=== PATIENT | male | born 1975 | race Caucasian/White ===

== ENCOUNTER 2024-02-10 10:42 | Emergency (ER) | payer MEDICAID, SELFPAY ==
--- NOTE | 2024-02-10 10:56 | XR_ITS ---
PROCEDURE INFORMATION: Exam: XR Right Knee Exam date and time: 02/10/2024 10:56 AM Age: 48 years old Clinical indication: Pain; Right; Prior surgery; Surgery date: 6+ months; Surgery type: Scar tissue removal; Patient HX: States he fell and twisted knee TECHNIQUE: Imaging protocol: Radiologic exam of the right knee. Views: 3 views. COMPARISON: No relevant prior studies available. FINDINGS: Bones/joints: Normal. No fracture or destructive bone lesion. Soft tissues: Normal. IMPRESSION: No acute findings.
--- NOTE | 2024-02-10 11:03 | ED_ITS ---
Discharge Plan Disposition Patient Disposition: Home, Self-Care Condition: Good Prescriptions Prescriptions: No Action sertraline 100 mg tablet 100 mg PO DAILY Patient Comments: TAKE 1 TABLET BY MOUTH ONCE DAILY DIRECTED buspirone 10 mg tablet 10 mg PO DAILY Patient Comments: TAKE 1 TABLET BY MOUTH TWICE DAILY DIRECTED FOR ANXIETY prazosin 2 mg capsule 2 mg PO DAILY Patient Comments: Take 1 capsule by mouth every night as directed quetiapine 150 mg tablet 150 mg PO DAILY Referrals Follow up/Referrals: Iglesia Masters DO [Staff Physician] - See instructions Seamus Vazquez [Primary Care Provider] - See instructions Activity Restrictions/Add. Instructions Additional Instructions/Restrictions: Rest the extremity, Elevate the extremity as tolerated while you are resting. Take ibuprofen for pain. I sent in a prescription to your pharmacy. Follow up with Dr. Masters (orthopedics). I put in a referral but you need to call his office and schedule an appointment. Follow up with your regular doctor. GO TO THE ER FOR ANY WORSENING SYMPTOMS Clinical Impressions Clinical Impression: Right knee sprain, Pain in right knee Stand Alone Forms Stand Alone Forms: Work/School Release Instructions Patient Instructions: How to Use Crutches, DI for Knee Sprain, How to Use a Knee Immobilizer Print Language Print Language: Zimbabwean Discharge ED Provider: Lobito Echols [facility] General Stated complaint: AO-02/07 Pain in R knee Time Seen by Provider: 02/10/24 11:03 History of Present Illness Provider Complaint: He states that he fell 2 days ago and twisted his right knee. He has had right knee pain and swelling since then. He denies any other injury or complaints. Related Data Home Medications ?Medication ?Instructions ?Recorded ?Confirmed buspirone 10 mg tablet 10 mg PO DAILY 02/10/24 02/10/24 prazosin 2 mg capsule 2 mg PO DAILY 02/10/24 02/10/24 quetiapine 150 mg tablet 150 mg PO DAILY 02/10/24 02/10/24 sertraline 100 mg tablet 100 mg PO DAILY 02/10/24 02/10/24 Allergies Allergy/AdvReac Type Severity Reaction Status Date / Time No Known Allergies Allergy Verified 02/10/24 11:06 [facility] Disclaimer: The information contained in this section may have been updated after the patient was seen, as this information can be updated by other users. Medical History (Updated 02/10/24 @ 11:51 by Lobito Echols APRN) Depressed Anxiety Surgical History (Updated 02/10/24 @ 11:07 by Radha Young RN) Hx laparoscopic cholecystectomy Social History Smoking Status: Never smoker alcohol intake: never current occupational status: unemployed Travel in the last 8 weeks: None ROS Obtained: Yes All systems reviewed & no additional complaints except as documented Constitutional Constitutional: Denies chills and Denies fever(s) Eyes Eyes: Denies eye discharge ENT Ears, Nose, Mouth, and Throat: Denies dizziness, Denies otalgia and Denies sore throat Cardiovascular Cardiovascular: Denies chest pain Respiratory Respiratory: Denies shortness of breath, Denies chest congestion, Denies cough, Denies stridor and Denies wheezing Gastrointestinal Gastrointestingal: Denies nausea or vomiting Musculoskeletal Musculoskeletal: Reports as per HPI and Reports arthralgias Integumentary/Breasts Skin/Breast: Denies redness, Denies rash and Denies wounds Neurologic Neurologic: Denies dizziness and Denies paresthesias Allergic/Immunologic Allergic/Immunologic: Denies wheezing Physical Exam General General appearance: alert and in no apparent distress Head Head exam: atraumatic, normocephalic and normal inspection Eye Eye exam: Present normal appearance, PERRL and EOMI ENT ENT exam: Present normal exam, normal oropharynx, mucous membranes moist, TM's normal bilaterally and normal external ear exam Neck Neck exam: Present normal inspection, full ROM and trachea midline; Absent meningismus or lymphadenopathy Chest Chest inspection: Present normal inspection and symmetric chest wall rise; Absent tenderness Respiratory Respiratory exam: Present normal lung sounds bilaterally; Absent respiratory distress Cardiovascular Cardiovascular exam: Present regular rate and normal rhythm; Absent JVD Abdominal Exam Abdominal exam: Present soft and normal bowel sounds; Absent distention, tenderness or guarding Extremities Exam Extremities exam: Present normal capillary refill; Absent calf tenderness Expanded Lower Extremity Exam Right: Hip/Pelvis exam: Present normal inspection and full ROM; Absent tenderness Upper leg exam: Present normal inspection and full ROM; Absent tenderness Knee exam: Present full ROM, tenderness, swelling and knee extension intact; Absent abrasion, laceration, ecchymosis, deformity, crepitus, dislocation, erythema, effusion, anterior drawer sign, posterior draw sign, pain with valgus, laxity with valgus, pain with varus or laxity with varus Lower leg exam: Present normal inspection, full ROM and Achilles tendon intact; Absent tenderness or Homans' sign Ankle exam: Present normal inspection and full ROM; Absent tenderness, tenderness over talofibular lig or anterior draw sign Foot/toe exam: Present normal inspection; Absent full ROM or tenderness Neurovascular/Tendon exam: Present normal capillary refill, normal 2-point discrimination and normal fine/light touch; Absent pulse deficit, motor deficit, sensory deficit, tendon deficit, extremity cold to touch or pallor Gait: observed and limited by pain Back Exam Back exam: Present normal inspection; Absent tenderness Neurological Exam Neurological exam: Present alert and oriented X3 Psychiatric Psychiatric exam: Present normal affect and normal mood Skin Skin exam: Present warm, dry, intact and normal color Lymphatic Lymphatic Findings: no adenopathy Medical Decision Making Medical Records Medical records reviewed: No I reviewed the patient's medical records. Screening: Per USPSTF and CDC recommendations, given the prevalence of disease in our region, it is our hospital?s policy to screen for HIV and viral Hepatitis for all patients aged 18 and over and those with ongoing risk factors. [place] Inquiry Pt receiving controlled substance: No Orders (Tests/Meds): ORDERS Category Date Time Status Knee XR right 3 views [XR knee RT 3V] Stat Exams 02/10/24 10:56 Ordered Radiology Data #1: Image(s): Knee Image Reviewed: Yes I reviewed the patient's radiology image and Yes I have reviewed radiologist's interpretation Preliminary Findings: No Fracture Seen Procedures Risk/Benefits of Procedure(s) Were Explained: Yes Orthopedic Splinting/Casting Injury #1: Side: right Lower Extremity Injury Location: knee Lower Extremity Immobilizer: knee immobilizer and applied by nurse/dr talavera Other Orthopedic Equipment: crutches Post Cast/Splinting Neuro Status: intact and no change Post Cast/Splinting Vasc Status: intact and no change
[2024-02-10 11:04] VITALS: BP 109/70; PULSE 79; RESP 20; TEMP 36.8; O2SAT 96; BMI 30.3
[2024-02-10 11:52] VITALS: BP 109/70; PULSE 79; RESP 20; TEMP 36.8
== END 2024-02-10 12:02 | disposition home or self-care (01) ==
PROVIDERS: Emergency Provider Nurse Practitioner Family; PCP Family Medicine
DX: M25.561 Pain in right knee (principal)
CPT/HCPCS: 73562; 99213; G0381

== ENCOUNTER 2024-02-28 15:33 | Outpatient (CLI) | payer MEDICAID, SELFPAY ==
--- NOTE | 2024-02-28 15:38 | MR_ITS ---
FINAL REPORT CLINICAL HISTORY: right knee pain instability FINDINGS: Multiplanar MR imaging of the right knee was performed without contrast. The medial and lateral menisci are intact without evidence of meniscal tear. There is some fluid in the distal anterior cruciate ligament of uncertain etiology. This may represent a chronic partial tear or mucinous degeneration. The posterior cruciate ligament is intact. The medial collateral ligament and lateral ligamentous complex are intact. The patellar and quadriceps tendons are intact. There is no evidence of fracture. An osteochondral lesion is seen of the trochlea. Mild and moderate chondromalacia is noted, worst involving the patellofemoral compartment. A small joint effusion is seen. The musculature is intact. No soft tissue mass or cyst is identified. IMPRESSION: Fluid in the distal anterior cruciate ligament may represent a chronic partial tear or mucinous degeneration. Mild and moderate chondromalacia, worst involving the patellofemoral compartment. Authenticated and ERN
== END 2024-02-28 23:59 | disposition home or self-care (01) ==
LOC: RAD 15:34
PROVIDERS: PCP Family Medicine; Visit Provider Physician Assistant Surgical
DX: M25.561 Pain in right knee (principal)
CPT/HCPCS: 73721

== ENCOUNTER 2024-03-08 14:40 | Outpatient (RCR) | payer MEDICAID, SELFPAY | END 2024-03-08 15:30 | disposition home or self-care (01) | LOC: PT 14:40 | PROVIDERS: Visit Provider Physician Assistant Surgical | DX: M25.561 Pain in right knee (principal); M23.91 Unspecified internal derangement of right knee | CPT/HCPCS: 97760 ==

== ENCOUNTER 2024-04-29 17:19 | Emergency (ER) | payer MEDICAID, SELFPAY ==
[2024-04-29 17:52] VITALS: BP 114/75; PULSE 73; RESP 18; TEMP 36.6; O2SAT 97; BMI 31.6
--- NOTE | 2024-04-29 18:13 | ED_ITS ---
Discharge Plan Disposition Patient Disposition: Home, Self-Care Condition: Good Prescriptions Prescriptions: New ibuprofen 600 mg tablet 600 mg PO Q6HP PRN (Reason: Mild Pain) Qty: 30 0RF No Action lidocaine HCl 10 mg/mL (1 %) solution 10 mg IJ ONCE Qty: 2 0RF triamcinolone acetonide [Kenalog] 40 mg/mL suspension 40 mg IJ ONCE Qty: 1 0RF sertraline 100 mg tablet 100 mg PO DAILY Patient Comments: TAKE 1 TABLET BY MOUTH ONCE DAILY DIRECTED buspirone 10 mg tablet 10 mg PO DAILY Patient Comments: TAKE 1 TABLET BY MOUTH TWICE DAILY DIRECTED FOR ANXIETY prazosin 2 mg capsule 2 mg PO DAILY Patient Comments: Take 1 capsule by mouth every night as directed quetiapine 150 mg tablet 150 mg PO DAILY Referrals Follow up/Referrals: Michele Olivia MD [Staff Physician] - See instructions Seamus Vazquez [Primary Care Provider] - See instructions Activity Restrictions/Add. Instructions Additional Instructions/Restrictions: Drink plenty of fluids. Follow up with your regular doctor. Follow up with the surgeon. I put in a referral to Dr. Olivia. Please call his office and get an appointment to be seen there by him. Inguinal hernias have a danger of getting incarcerated out in the hernia. You should follow up to discuss getting it fixed. His office phone number will be on this paperwork. GO TO THE ER FOR ANY WORSENING SYMPTOMS Clinical Impressions Clinical Impression: Hernia, inguinal, left Instructions Patient Instructions: DI for Groin Hernia, Groin Hernia -- Adult Print Language Print Language: Czech Discharge ED Provider: Lobito Echols [facility] General Stated complaint: groin area swollen Mode of Arrival: Ambulatory Source of Information: Patient Time Seen by Provider: 04/29/24 18:13 Description of Symptoms (Recalled from Triage Doc. by RN): SWOLLEN LEFT GROIN AREA, PAINFUL X3 WEEKS HEENT Symptoms (Recalled from RN notes): No Resp Symptoms (Recalled from RN notes): No Skin Symptoms (Recalled from RN notes): Yes MS Symptoms (Recalled from RN notes): No Functional Status (Recalled from RN notes): WNL History of Present Illness Provider Complaint: He states that for the past 3 weeks he has had intermittent swelling of his left groin area. He states that he is having pain at the site at times also. Related Data Home Medications ?Medication ?Instructions ?Recorded ?Confirmed buspirone 10 mg tablet 10 mg PO DAILY 02/10/24 04/29/24 prazosin 2 mg capsule 2 mg PO DAILY 02/10/24 04/29/24 quetiapine 150 mg tablet 150 mg PO DAILY 02/10/24 04/29/24 sertraline 100 mg tablet 100 mg PO DAILY 02/10/24 04/29/24 Previous Rx's ?Medication ?Instructions ?Recorded ibuprofen 600 mg tablet 600 mg PO Q6HP PRN Mild Pain #30 04/29/24 tabs Allergies Allergy/AdvReac Type Severity Reaction Status Date / Time No Known Allergies Allergy Verified 03/08/24 14:12 Worker's Comp Is this a Worker's Comp case?: No [facility] Disclaimer: The information contained in this section may have been updated after the patient was seen, as this information can be updated by other users. Medical History Depressed Anxiety Surgical History Hx laparoscopic cholecystectomy Social History (Updated 03/12/24 @ 09:21 by BRENDEN Ward) Smoking Status: Never smoker alcohol intake: never current occupational status: unemployed Travel in the last 8 weeks: None Have you lived/traveled outside US in past 30 days?: No Contact w/someone who lives/traveled outside US past 30 days?: No Exposure to someone with infectious disease in past 14 days?: No Do you have a fever (greater than 100.4 F or 38 C)?: No Have you tested positive for COVID-19: No Exposed to someone with COVID-19 in past 14 days?: No Do you have a sore throat?: No Do you have a cough?: No Do you have any weakness?: No Do you have any diarrhea?: No Are you experiencing any unusual bleeding?: No Do you have any muscle aches/pain?: No Do you have any abdominal pain?: No Are you experiencing loss of taste or smell?: No ROS Obtained: Yes All systems reviewed & no additional complaints except as documented Constitutional Constitutional: Denies chills and Denies fever(s) Eyes Eyes: Denies eye discharge ENT Ears, Nose, Mouth, and Throat: Denies dizziness, Denies otalgia and Denies sore throat Cardiovascular Cardiovascular: Denies chest pain Respiratory Respiratory: Denies shortness of breath, Denies chest congestion, Denies cough, Denies stridor and Denies wheezing Gastrointestinal Gastrointestingal: Reports as per HPI; Denies abdominal pain, nausea or vomiting Musculoskeletal Musculoskeletal: Reports system reviewed and no additional complaints, except as documented and Denies arthralgias Integumentary/Breasts Skin/Breast: Denies rash Neurologic Neurologic: Denies dizziness and Denies paresthesias Allergic/Immunologic Allergic/Immunologic: Denies wheezing Physical Exam General General appearance: alert and in no apparent distress Head Head exam: atraumatic, normocephalic and normal inspection Eye Eye exam: Present normal appearance, PERRL and EOMI ENT ENT exam: Present normal exam, normal oropharynx, mucous membranes moist, TM's normal bilaterally and normal external ear exam Neck Neck exam: Present normal inspection, full ROM and trachea midline; Absent meningismus or lymphadenopathy Chest Chest inspection: Present normal inspection and symmetric chest wall rise; Absent tenderness Respiratory Respiratory exam: Present normal lung sounds bilaterally; Absent respiratory di stress Cardiovascular Cardiovascular exam: Present regular rate and normal rhythm; Absent JVD Abdominal Exam Abdominal exam: Present soft and normal bowel sounds; Absent distention, tenderness or guarding Expanded Exam exam: Present inguinal hernia; Absent penile swelling, balanitis, ulcerations or inguinal lymphadenopathy Extremities Exam Extremities exam: Present normal inspection, full ROM and normal capillary refill; Absent calf tenderness Back Exam Back exam: Present normal inspection; Absent tenderness Neurological Exam Neurological exam: Present alert and oriented X3 Psychiatric Psychiatric exam: Present normal affect and normal mood Skin Skin exam: Present warm, dry, intact and normal color Lymphatic Lymphatic Findings: no adenopathy Medical Decision Making Medical Records Medical records reviewed: No I reviewed the patient's medical records. Screening: Per USPSTF and CDC recommendations, given the prevalence of disease in our region, it is our hospital?s policy to screen for HIV and viral Hepatitis for all patients aged 18 and over and those with ongoing risk factors. [place] Inquiry Pt receiving controlled substance: No Vital Signs: 04/29/24 17:52 Temperature 97.9 F Temperature Source Oral Pulse Rate [Left Radial] 73 Respiratory Rate 18 Blood Pressure [Left Arm] 114/75 Blood Pressure Mean [Left Arm] 88 02 Sat by Pulse Oximetry 97
[2024-04-29 18:31] VITALS: BP 114/75; PULSE 73; RESP 18; TEMP 36.6
== END 2024-04-29 18:31 | disposition home or self-care (01) ==
PROVIDERS: Emergency Provider Nurse Practitioner Family; PCP Family Medicine
DX: K40.90 Unilateral inguinal hernia, without obstruction or gangrene, not specified as recurrent (principal)
CPT/HCPCS: 99212; G0381

== ENCOUNTER 2024-05-01 13:24 | Outpatient (CLI) | payer MEDICAID, SELFPAY ==
[2024-05-01 13:31] LABS: Microscopic, Urine URINE MICROSCOPIC (MICROSCOPIC)
[2024-05-01 13:58] LABS: Basophils # 0.1 K/mm3 (0-0.2); Basophils % 0.5 % (0.1-2.0); Eosinophils # 0.2 K/mm3 (0.0-0.4); Eosinophils % 1.6 % (0.1-12.0); Hematocrit 46.5 % (42.0-52.0); Hemoglobin 15.8 g/dL (14.1-18.0); Lymphocytes # 3.2 K/mm3 (0.7-4.5); Lymphocytes % 24.9 % (10-50); Mean Corpuscular Hemoglobin 31.4 pg (27.0-31.2); Mean Corpuscular Volume 92.4 fl (80-94); Mean Platelet Volume 11.3 fl (7.4-10.4); Monocytes # 0.9 K/mm3 (0.1-1.0); Monocytes % 7.2 % (1.7-9.3); Neutrophils # 8.5 K/mm3 (1.8-7.8); Neutrophils % 65.4 % (37.0-80.0); Platelet Count 287 K/mm3 (142-424); Red Blood Count 5.03 M/mm3 (4.60-6.20); Red Cell Distribution Width 13.6 % (11.5-17.5)
[2024-05-01 14:40] LABS: Appearance,Urine CLEAR (Clear); Blood, Urine Negative (Negative); Color,Urine YELLOW (Yellow); Glucose,Urine (UA) Negative (Negative); Ketones,Urine TRACE (Negative); Leukocyte Esterase,Urine Negative (Negative); Nitrate,Urine Negative (Negative); Protein,Urine TRACE (Negative); Specific Gravity, Urine >= 1.030 (1.005-1.030)
[2024-05-01 14:41] LABS: Alanine Aminotransferase 42 U/L (12-78); Albumin Level 4.8 g/dl (3.5-5.0); Alkaline Phosphatase 100 U/L (38-126); Anion Gap 13.3 mEq/L (5-15); Aspartate Amino Transferase 37 U/L (17-59); Bilirubin,Total 0.6 mg/dl (0.2-1.3); Blood Urea Nitrogen 12 mg/dl (9-20); Calcium 9.9 mg/dl (8.4-10.2); Carbon Dioxide 24 mmol/L (22.0-30.0); Chloride 107 mmol/L (98-107); Estimated Glomerular Filt Rate 90 ml/min (>60); GFR (African American) 109 ML/MIN (>60); Globulin 2.4 g/dL (1.3-3.2); Glucose 96 mg/dl (74-100); Potassium 4.3 mmoL/L (3.5-5.1); Sodium 140 mmol/L (136-145); Total Protein,Serum 7.2 g/dl (6.3-8.2)
[2024-05-01 15:08] LABS: Bilirubin,Urine Negative (Negative); WBC,Urine Occasional #/hpf (0-3)
[2024-05-01 15:09] LABS: Bacteria,Urine 1+ /lpf; Calcium Oxalate Crystals,Urine Trace /lpf; Mucus,Urine 4+ /lpf
[2024-05-02 05:12] LABS: HBsAg Screen Negative (Negative); HCV Ab Non Reactive (Non Reactive); Hep A Ab, IGM Negative (Negative); Hep B Core Ab, IgM Negative (Negative)
== END 2024-05-01 23:59 | disposition home or self-care (01) ==
LOC: LAB 13:26
PROVIDERS: PCP Family Medicine; Visit Provider Surgery
DX: K40.90 Unilateral inguinal hernia, without obstruction or gangrene, not specified as recurrent (principal); Z01.818 Encounter for other preprocedural examination
CPT/HCPCS: 36415; 80053; 80074; 81001; 85025

== ENCOUNTER 2024-05-09 11:45 | Outpatient (CLI) | payer MEDICAID, SELFPAY ==
--- NOTE | 2024-05-09 12:11 | ECG_ITS ---
APPROVED REPORT Exam: Resting ECG HR:81 bpm ECG Measurements Heart Rate 81 AXES NM 162 P 56 QRSd 99 QRS -2 QT 353 T 53 QTc 390 Conclusion SINUS RHYTHM NORMAL ECG UNCONFIRMED REPORT Electronically signed by : Jordan Matos MD 05/12/2024 21:01:57
[2024-05-09 12:58] VITALS: BMI 29.9
== END 2024-05-09 23:59 | disposition home or self-care (01) ==
LOC: PREOP 11:46
PROVIDERS: Visit Provider Surgery
DX: Z13.6 Encounter for screening for cardiovascular disorders (principal)
CPT/HCPCS: 93005

== ENCOUNTER 2024-05-14 06:03 | Day surgery (SDC) | payer MEDICAID, SELFPAY ==
[2024-05-14] VITALS (13 sets, daily range): BP systolic 111–159; BP diastolic 73–106; PULSE 69–88; RESP 18–26; TEMP 36.1–36.6; O2SAT 91–98; BMI 29.9
[2024-05-14 06:39] LABS: Basophils # 0.1 K/mm3 (0-0.2); Basophils % 0.6 % (0.1-2.0); Eosinophils # 0.4 K/mm3 (0.0-0.4); Eosinophils % 3.3 % (0.1-12.0); Hematocrit 46.6 % (42.0-52.0); Hemoglobin 15.2 g/dL (14.1-18.0); Lymphocytes # 4.1 K/mm3 (0.7-4.5); Mean Corpuscular HGB Conc 32.6 g/dL (31.8-35.4); Mean Corpuscular Hemoglobin 30.4 pg (27.0-31.2); Mean Corpuscular Volume 93.2 fl (80-94); Mean Platelet Volume 10.7 fl (7.4-10.4); Monocytes # 1.2 K/mm3 (0.1-1.0); Monocytes % 8.8 % (1.7-9.3); Neutrophils # 7.3 K/mm3 (1.8-7.8); Neutrophils % 55.8 % (37.0-80.0); Platelet Count 310 K/mm3 (142-424); Red Cell Distribution Width 13.7 % (11.5-17.5); White Blood Count 13.1 K/mm3 (4.8-10.8)
[2024-05-14] MEDS: LACTATED RINGERS 1000ML 1,000 ML 25 ML IV (06:42)
--- NOTE | 2024-05-14 06:57 | EXP.ANES.CKL ---
[facility] Disclaimer: The information contained in this section may have been updated after the patient was seen, as this information can be updated by other users. Medical History Depressed Anxiety Surgical History History of knee surgery History of back surgery History of colonoscopy Hx laparoscopic cholecystectomy Family History Other Family history of cancer Family history of diabetes mellitus Social History (Updated 05/14/24 @ 06:25 by Yoon Robert RN) Smoking Status: Current every day smoker alcohol intake: never substance use type: denies use current occupational status: disabled Travel in the last 8 weeks: None [facility] Anesthesia Checklist Patient Identification Patient Identification: Arm Band and Family Structural Data Admitted From: Home Planned Operative Procedure/s: Lap gayathri inguinal hernia repair. Umbilical hernia repair. Consent for Planned Operative Procedure(s) Verified: Yes Verified Documents: Surgical Consent and History and Physical NPO Status Verified Time NPO: 00:00 Additional verifications Patient : No Anesthesia Reactions: No Hx Blood Transfusions: No Blood Transfusion Reaction: No Cephalosporin Allergy: No Previous Colonoscopy: Yes Airway Assessment Mallampati Score:: Class III C-Spine Mobility Assessed: Yes TMJ Mobility Assessed: Yes Dentition: Edentulous Neurological Assessment Level of Consciousness: Awake, Alert, Appropriate and Follows Commands Hx Seizures: No Numbness or tingling in extremities: No Anesthesia Plan Anesthesia Risk discussed: Yes ASA Class: II Anesthesia Type: General
[2024-05-14] MEDS: CEFAZOLIN SODIUM 2 GM in 0.9 % SODIUM CHLORIDE 100 ML IV (07:13)
[2024-05-14] MEDS: ROPIVACAINE 0.5% 30ML VIAL 150 MG (07:36)
[2024-05-14] MEDS: LIDOCAINE 1% 20ML MDV 20 ML (07:36)
--- NOTE | 2024-05-14 09:50 | P.OP_ITS ---
Date of procedure: 05/14/24 Pre-op Diagnosis:: Bilateral inguinal hernias, umbilical hernia Post-op Diagnosis:: Same Procedure performed:: Bilateral laparoscopic inguinal hernia repair via totally extraperitoneal approach (TEPP) with placement of large Bard 3D max mesh bilaterally Open umbilical hernia repair with placement of small Bard Ventralex mesh . Surgeon:: Michele Olivia MD FACILITY MAINTENANCE SUPERVISOR:: Lobito Nuno Anesthesia: GETA Estimated blood loss (mL): 15 Clinical Note:: Patient presents for hernia repair. He is a 48-year-old male who was referred by the [facility] for left inguinal hernia and seen in the office initially on 05/01/2024. He was seen in the [facility] on 04/29/2024. He was diagnosed with left inguinal hernia and sent for surgical consultation. At this point he has had symptoms for about 3 weeks. There is no inciting event. He has had no symptoms on the right side. When he was initially seen in the office he was diagnosed with a definite left inguinal hernia which appeared to be moderate and possibly direct. Discussion was held with anesthesia and plan was to proceed with cardiology risk assessment. He was seen by cardiology and deemed an acceptable risk. He would like to pursue repair. He was seen back in the office on 05/09/2024. He was found to have a definite symptomatic left inguinal hernia and findings consistent with small asymptomatic right inguinal hernia. There was also an incidental reducible umbilical hernia. Given the bilaterality along with the umbilical hernia discussion was held for possible attempt at laparoscopic repair with concentration on the left inguinal hernia. Plan was made to proceed with laparoscopic bilateral inguinal hernia repair, possible open, concomitant umbilical hernia repair. . Operative findings:: He had a moderate direct hernia with a small to moderate indirect hernia on the left. There was a small direct hernia and a small indirect hernia on the right. He had a small, approximately 8 to 10 mm umbilical hernia. . Operative note:: Consent was obtained patient was taken the operating room. He was given preoperative intravenous antibiotics. In the operating room he was placed in a supine position. Ayala catheter was placed for bladder decompression. Abdomen and perineum were prepped and draped in the standard surgical fashion. Subumbilical skin incision was made. Dissection was carried down to anterior rectus fascia which was incised. However this appeared to be likely in the midline despite it being somewhat to the left of the umbilicus. Therefore a couple of Vicryl sutures were placed to close this and immediately adjacent to this to the left the anterior rectus fascia was incised. Rectus muscle was then identified and retracted laterally and the retrorectus preperitoneal space was entered. Dissecting balloon trocar was inserted and insufflated dissecting out the preperitoneal space. This was deflated replaced with the structural balloon trocar. CO2 pneumo preperitoneum was achieved. A couple 5 mm trocars were inserted in the midline inferior to the umbilicus. It appeared as though there was some leakage from the balloon and this was then replaced with a different structural balloon trocar. Dissection was carried out of the left iliopectineal region. Landmarks were identified initially identifying Jimbo's ligament and pubic tubercle. Inferior epigastric vessels were identified as were the iliac vessels. There was an obvious direct hernia. Herniated fatty tissues were reduced leaving the hernia sac in situ. The cord structures were identified and dissected free from surrounding structures. There was some evidence of an indirect hernia with patent processes vaginalis and indirect hernia sac which was reduced after dissection and free from the cord structures. There was some scar tissue in the superior lateral inguinal area with the rectus adherent anteriorly. There was an overlying scar on the skin. Is unclear if this was previous surgery or trauma. The fascia was dissected free using laparoscopic Metzenbaum suction to allow for placement of mesh. Preperitoneal space was dissected out. Once dissection was completed under laparoscopic visualization local anesthetic was infiltrated for inguinal nerve block. Next attention was turned to dissection on the right. In a similar fashion landmarks were identified. There was a small direct hernia which was reduced. There is evidence of a small indirect hernia as well which was dissected free from the cord structures as before and return to the normal anatomic position. All landmarks were identified. Once all dissection was carried out on the right local anesthetic was infiltrated for inguinal nerve block. A large sized Bard 3D max mesh dedicated for the right side was inserted into the preperitoneal space and oriented intracorporeally to cover the iliopectineal orifice in its entirety. Both repairs appeared adequate. There appeared to be good hemostasis. CO2 pneumo preperitoneum was evacuated as mesh was observed in position. Trocars were removed. Anterior rectus fascia at the umbilical site was closed with several interrupted 0 Vicryl sutures. At this time attention was turned to umbilical hernia repair. The hernia sac was dissected free from the surrounding subcutaneous tissues. It was incised with Metzenbaum dissection and dissected free from the umbilical subdermis. The extraneous peritoneum of the hernia sac and herniated preperitoneal fatty tissues were incised with electrocautery. The overall size of the defect measured about 8 mm. Consideration was being given for possible primary repair. However due to its size it was felt that this would likely result in potential recurrence. Therefore repair was planned with small Bard Ventralex mesh. Said mesh was placed into the peritoneal cavity to overlap the fascial defect edges. The tails of the mesh were sutured superiorly and inferiorly to the fascia with interrupted 2-0 PDS. Tails were cut flush with the fascia. The fascia was closed over the mesh with several interrupted 3-0 Ethibond sutures. Local anesthetic was infiltrated. Umbilical subdermis was reapproximated to the underlying fascia with a 2-0 Vicryl suture. Subdermal tissues were closed with 2-0 Vicryl. Skin was closed with 4-0 Monocryl running subcuticular fashion. Condition: stable Disposition: PACU Complications:: None immediately apparent
[2024-05-14 10:01] LABS: Microscopic,Cath URINE MICROSCOPIC (MICROSCOPIC)
--- NOTE | 2024-05-14 10:01 | P.PNANES_ITS ---
[facility] Anesthesia Record Part I Anesthesia Record I Intake, IV Amount: 1,600 Hydration: Adequate Estimated blood loss (mL): 15 Urine output (mL): 200 Blood Products used (#): none Blood Pressure: 130/85 SaO2: 92 Pulse Rate: 83 Airway Patency: Patent Respiratory Rate: 26 Temperature: 97.6 F Patient is:: Drowsy and Stable Stable to PACU at:: 09:55
[2024-05-14] MEDS: MEPERIDINE 25MG/ML 1ML SYRINGE 12.5 MG IV ×2 (10:12→10:20)
[2024-05-14] MEDS: MORPHINE 2MG/ML SYRINGE 2 MG IV (10:22)
[2024-05-14 10:23] LABS: Appearance,Urine/Cath CLEAR (Clear); Bilirubin,Cath Negative (Negative); Blood, Urine/Cath Negative (Negative); Color,Urine/Cath YELLOW (Yellow); Glucose,Urine/Cath (UA) Negative (Negative); Ketones,Urine/Cath Negative (Negative); Leukocyte Esterase,Cath Negative (Negative); Nitrate,Cath Negative (Negative); Protein,Urine/Cath Negative (Negative); Specific Gravity, Urine/Cath >= 1.030 (1.005-1.030); Urobilinogen,Cath 0.2 EU/dl (0.2)
[2024-05-14] MEDS: KETOROLAC 30MG/ML VIAL 30 MG IV (10:50)
[2024-05-14] MEDS: ONDANSETRON 4MG/2ML VIAL 4 MG IV (10:54)
[2024-05-14 10:56] LABS: WBC,Urine/Cath Occasional #/hpf (0-3)
--- NOTE | 2024-05-15 13:08 | P.PNANES_ITS ---
[facility] Anesthesia Record Part II Anesthesia Record Part II Discharge Time: 11:05 Destination: Surgical Day Care (OP Surgery) PACU nurse assessment reviewed?: Yes Patient Condition:: Good Anesthesia Complications:: None Swallowing reflex intact?: Yes Airway Patency: Patent Cyanosis?: No Blood Pressure: 146/97 SaO2: 96 Respiratory Rate: 18 Pulse Rate: 78 Temperature: 98 F Mental Status: Alert & Oriented Pain level:: 5 Nausea and/or vomitting:: None Intake, IV Amount: 0 Hydration: Adequate
[2024-05-15 13:09] VITALS: BP 146/97; PULSE 78; RESP 18; TEMP 36.6; O2SAT 96
== END 2024-05-14 11:45 | disposition home or self-care (01) ==
PROVIDERS: PCP Family Medicine; Visit Provider Surgery
PROC: (CPT 49650; principal; 2024-05-14 07:30)
DX: K40.20 Bilateral inguinal hernia, without obstruction or gangrene, not specified as recurrent (principal); K42.9 Umbilical hernia without obstruction or gangrene
CPT/HCPCS: 49593; 49650; 81001; 85025; 96374; J3490; C1781; J0690; J1100; J1885; J2175; J2250; J2270; J2405; J3010; J7120

== ENCOUNTER 2024-06-27 15:54 | Outpatient (CLI) | payer MEDICAID, SELFPAY ==
--- NOTE | 2024-06-27 15:57 | XR_ITS ---
FINAL REPORT CLINICAL HISTORY: fall/pain in left shoulder with movement COMPARISON: None FINDINGS: LEFT SHOULDER Three views of the left shoulder were obtained. There is no acute fracture or dislocation. Visualized joint spaces are normally aligned. Soft tissues are unremarkable. IMPRESSION: No acute bony abnormality. Reviewed, Interpreted and Dictated by Rustam Nguyễn MD Transcribed by Mariola Novoa Authenticated and [facility]
--- NOTE | 2024-06-27 15:57 | XR_ITS ---
FINAL REPORT CLINICAL HISTORY: fall 3 days ago/pain with movement COMPARISON: None FINDINGS: LEFT CLAVICLE Two views of the left clavicle were obtained. There is no acute fracture or dislocation. The joint spaces are well-preserved. There is no acute soft tissue abnormality. IMPRESSION: No acute abnormality identified. Reviewed, Interpreted and Dictated by Rustam Nguyễn MD Transcribed by Mariola Novoa Authenticated and [facility]
== END 2024-06-27 23:59 | disposition home or self-care (01) ==
LOC: RAD 15:55
PROVIDERS: PCP Family Medicine; Visit Provider Nurse Practitioner
DX: M25.512 Pain in left shoulder (principal)
CPT/HCPCS: 73000; 73030

== ENCOUNTER 2024-07-10 16:32 | Emergency (ER) | payer MEDICAID, SELFPAY ==
[2024-07-10 16:41] VITALS: BP 125/77; PULSE 87; RESP 16; TEMP 36.7; O2SAT 99; BMI 31.2
[2024-07-10 16:42] LABS: Coronavirus 19, PCR Not Detected (NotDetected); Influenza A, PCR Not Detected (NotDetected); Influenza B, PCR Not Detected (NotDetected)
--- NOTE | 2024-07-10 16:52 | ED_ITS ---
<Statement entered by Virginia Valdes DO - 07/10/24 19:17> I was consulted by the [place], and we discussed the complexity of the problems being addressed. I approved the treatment and management plan for this patient's care in the emergency department, thus performing a substantive portion of the medical decision making. Virginia Valdes DO Discharge Plan Disposition Patient Disposition: Home, Self-Care Condition: Good Chief Complaint: Upper Respiratory Infection Prescriptions Prescriptions: No Action ibuprofen 600 mg tablet 600 mg PO Q8H PRN (Reason: pain) Qty: 20 0RF sertraline [Zoloft] 100 mg tablet 100 mg PO DAILY Patient Comments: TAKE 1 TABLET BY MOUTH ONCE DAILY DIRECTED buspirone 10 mg tablet 10 mg PO DAILY Patient Comments: TAKE 1 TABLET BY MOUTH TWICE DAILY DIRECTED FOR ANXIETY prazosin 2 mg capsule 2 mg PO DAILY Patient Comments: Take 1 capsule by mouth every night as directed quetiapine 150 mg tablet 150 mg PO DAILY Referrals Follow up/Referrals: Seamus Vazquez [Primary Care Provider] - See instructions Activity Restrictions/Add. Instructions Additional Instructions/Restrictions: Please utilize [id number] cold and flu medications and nasal decongestions, return to the emergency department any worsening signs or symptoms. Please follow-up with your family doctor. I recommend good intake with solids and fluids. Clinical Impressions Clinical Impression: URI (upper respiratory infection) Instructions Patient Instructions: Common Cold Print Language Print Language: Greenlandic Discharge ED Provider: Virginia Valdes General Adult HPI General Chief complaint: Upper Respiratory Infection Stated complaint: Head congestion,cough,runny nose Time Seen by Provider: 07/10/24 16:43 Mode of Arrival: Ambulatory Source of Information: Patient Description of Symptoms (Recalled from ER Triage Doc. by RN): Patient reports cough and congestion for 6 days. States he thinks he has a sinus infection. History of Present Illness HPI narrative: 48-year-old male presents emergency department with cough, congestion, headache, states I think I have a sinus infection , denies any recent sick contacts, denies any chest pain shortness of breath, denies any real sore throat, denies chest pain, denies shortness of breath, nausea vomiting constipation diarrhea no abdominal pain, no urinary type symptomatology, patient is a current everyday smoker, the past medical history consistent with multiple abdominal hernias, denies any other alcohol or drug use, other past medical history consistent with PTSD/anxiety/depression. Initial triage vitals grossly unremarkable. Onset (ago): day(s) Related Data Home Medications ?Medication ?Instructions ?Recorded ?Confirmed buspirone 10 mg tablet 10 mg PO DAILY 02/10/24 06/27/24 prazosin 2 mg capsule 2 mg PO DAILY 02/10/24 06/27/24 quetiapine 150 mg tablet 150 mg PO DAILY 02/10/24 06/27/24 sertraline 100 mg tablet (Zoloft) 100 mg PO DAILY 02/10/24 06/27/24 Previous Rx's ?Medication ?Instructions ?Recorded ibuprofen 600 mg tablet 600 mg PO Q8H PRN pain #20 tabs 06/27/24 Allergies Allergy/AdvReac Type Severity Reaction Status Date / Time titanium Allergy Hives Verified 06/27/24 12:47 [facility] Disclaimer: The information contained in this section may have been updated after the patient was seen, as this information can be updated by other users. Medical History Depressed Anxiety Surgical History History of hernia surgery History of knee surgery History of back surgery History of colonoscopy Hx laparoscopic cholecystectomy Family History Other Family history of cancer Family history of diabetes mellitus Social History Smoking Status: Current every day smoker alcohol intake: never substance use type: denies use current occupational status: disabled Travel in the last 8 weeks: None Have you lived/traveled outside [place] in past 30 days?: No Contact w/someone who lives/traveled outside US past 30 days?: No Exposure to someone with infectious disease in past 14 days?: No Do you have a fever (greater than 100.4 F or 38 C)?: No Have you tested positive for COVID-19: No Exposed to someone with COVID-19 in past 14 days?: No Do you have a sore throat?: No Do you have a cough?: Yes Do you have any weakness?: No Do you have any diarrhea?: No Are you experiencing any unusual bleeding?: No Do you have any muscle aches/pain?: No Do you have any abdominal pain?: No Are you experiencing loss of taste or smell?: No Other Medical History Have you received the Pneumonia Vaccine: No ROS Obtained: Yes All systems reviewed & no additional complaints except as documented Physical Exam General General appearance: alert and in no apparent distress Head Head exam: atraumatic and normocephalic Eye Eye exam: Present PERRL and EOMI ENT ENT exam: Present normal oropharynx, mucous membranes moist and other (There is some mild pain palpation over the frontal and maxillary sinuses) Neck Neck exam: Present normal inspection Chest Chest inspection: Present normal inspection and symmetric chest wall rise Respiratory Respiratory exam: Present normal lung sounds bilaterally; Absent respiratory distress Cardiovascular Cardiovascular exam: Present regular rate and normal rhythm Abdominal Exam Abdominal exam: Present soft; Absent tenderness Extremities Exam Extremities exam: Present normal inspection Neurological Exam Neurological exam: Present alert and oriented X3 Psychiatric Psychiatric exam: Present normal affect Skin Skin exam: Present warm and dry Medical Decision Making Medical Records Medical records reviewed: Yes I reviewed the patient's medical records. Screening: Per USPSTF and CDC recommendations, given the prevalence of disease in our region, it is our hospital?s policy to screen for HIV and viral Hepatitis for all patients aged 18 and over and those with ongoing risk factors. [place] Inquiry Pt receiving controlled substance: No [place] was queried for this patient: No Vital Signs: 07/10/24 16:41 Temperature 98.0 F Temperature Source Oral Pulse Rate [Radial] 87 Respiratory Rate 16 Blood Pressure [Left Arm] 125/77 Blood Pressure Mean [Left Arm] 93 Blood Pressure Source [Left Arm] Automatic Cuff Blood Pressure Position [Left Arm] Sitting 02 Sat by Pulse Oximetry 99 Oxygen Delivery Method Room Air Lab Data Lab Results 07/10/24 16:40: SARS-CoV-2 (PCR) Not detected, Influenza A Untype (PCR) Not detected, Influenza Type B (PCR) Not detected Orders (Tests/Meds): ORDERS Category Date Time Status HIV Combo Stat Lab 07/10/24 16:43 Ordered Rapid PCR Covid and Flu A/B Stat Lab 07/10/24 16:40 Completed Medical Decision Narrative: 48-year-old male presents to the emergency department with cough congestion other URI type symptomatology, differential diagnosis but limited to viral rhinosinusitis, allergic rhinosinusitis, COVID-19, influenza, acute URI, acute bronchitis. Will obtain rapid antigen swabs for COVID-19 and influenza A and B. Influenza A negative COVID-19 negative influenza B is negative. I discussed the results with the patient at the bedside, recommend strict ED return precautions, recommend good p.o. intake, any of the [id number] cold and flu medications, or nasal decongestions can be utilized for symptomatology. Patient will return to emergency with any worsening signs or symptoms he will follow-up PCP as directed. Patient has remained hemodynamically stable without his time in the emergency department, afebrile. Critical Care Critical Care Time Critical Care Time: No
[2024-07-10 17:49] VITALS: BP 128/80; PULSE 84; RESP 16; TEMP 36.6; O2SAT 99
== END 2024-07-10 17:56 | disposition home or self-care (01) ==
PROVIDERS: Physician Assistant; Emergency Provider Emergency Medicine; PCP Family Medicine
DX: J06.9 Acute upper respiratory infection, unspecified (principal); R09.81 Nasal congestion; R05.9 Cough, unspecified; K46.9 Unspecified abdominal hernia without obstruction or gangrene; F43.10 Post-traumatic stress disorder, unspecified; F41.9 Anxiety disorder, unspecified; F32.A Depression, unspecified; F17.210 Nicotine dependence, cigarettes, uncomplicated; Z91.048 Other nonmedicinal substance allergy status; Z98.890 Other specified postprocedural states; Z80.9 Family history of malignant neoplasm, unspecified; Z83.3 Family history of diabetes mellitus; Z90.49 Acquired absence of other specified parts of digestive tract
CPT/HCPCS: 87636; 99283

== ENCOUNTER 2024-08-06 09:35 | Outpatient (CLI) | payer MEDICAID, SELFPAY ==
[2024-08-06 20:40] LABS: Hemoglobin A1C 5.5 % (4.0-6.0)
[2024-08-06 20:41] LABS: Chol/HDL Ratio 6.3 (1-3.5); Cholesterol 183 mg/dl (140-200); HDL Cholesterol 29 mg/dl (40-60); Triglycerides 305 mg/dl (30-150); VLDL Cholesterol 61 mg/dL (0-40)
[2024-08-06 20:53] LABS: Direct LDL Cholesterol 100.72 mg/dL (100-129)
[2024-08-06 20:57] LABS: 25-OH Vitamin D, Total 16.2 ng/mL (30-100)
[2024-08-06 21:30] LABS: Hepatitis C Ab Qual. W/ RFX NEGATIVE (Negative)
[2024-08-06 22:44] LABS: Prostate Specific Ag Screen 0.5 ng/ml (0.0-4.0)
[2024-08-09 10:56] LABS: HIV Combo NEGATIVE (Negative)
== END 2024-08-06 23:59 | disposition home or self-care (01) ==
LOC: LAB.DROPOF 08-07 11:08
PROVIDERS: PCP Family Medicine; Visit Provider Family Medicine
DX: Z00.00 Encounter for general adult medical examination without abnormal findings (principal); Z13.1 Encounter for screening for diabetes mellitus; Z12.5 Encounter for screening for malignant neoplasm of prostate; Z11.59 Encounter for screening for other viral diseases
CPT/HCPCS: 80061; 82306; 83036; 86803; 87389; G0103

== ENCOUNTER 2024-09-06 10:00 | Outpatient (RCR) | payer MEDICAID, SELFPAY ==
--- NOTE | 2024-08-23 08:38 | HMH.OTOPEV ---
OT Inpatient Evaluation Rehab OT Outpatient Eval Start: 08/23/24 08:28 Freq: Status: Active Protocol: Document 08/23/24 08:28 RMSUNITHA (Rec: 08/23/24 08:38 [id number] E-signed By Ambreen Mandujano, OT Outpatient Therapy Subjective History Subjective History Pt is a 48 year old male who reports to therapy for initial evaluation to L shoulder. Pt reports ~3 months ago he was playing basketball with his son when he went up for a lay up he fell directly back down onto left shoulder. Since this injury, pt has had constant pain and decreased AROM at left shoulder. Pt is right hand dominant. Pt has not has a X-ray or MRI completed. Today he presents with decreased AROM and strength in all planes. Therapist will continue to see patient twice a week in order to address all L shoulder deficits. New diagnosis of cancer in past 12 No months? Chief Complaint Pain,Weakness Symptom Type Ache,Throb,Sharp,Dull Symptoms Relieved By Rest/Positioning Symptoms Aggravated By Physical Activity,Twisting, Lifting Prior Functional Limitations None Current Functional Limitations Reaching,Lifting,Housework, Dressing,Sleeping,Recreation Activity Symptom Description Constant but Variable Level of pain today (0-10) 5 Pain scale - at its best (0-10) 5 Pain scale - at its worst (0-10) 10 Shoulder/Elbow Eval Shoulder Objective Measurements Shoulder ROM Left Shoulder Abduction Active Range of 78 Motion (degrees) Shoulder Flexion Active Range of Motion 100 (degrees) Query Text: Shoulder External Rotation Active Range 50 of Motion (degrees) Shoulder Internal Rotation Active Range 32 of Motion (degrees) Shoulder MMT Shoulder Abduction Strength Grade 4- Good- Shoulder Flexion Strength Grade 4- Good- Shoulder External Rotation Strength 4- Good- Grade Shoulder Internal Rotation Strength 4- Good- Grade Shoulder Strength Patient Testing Sitting Position Elbow Objective Measurements QuickDASH Activities Please rate your ability to do the following activities in the last week by selecting the number below the appropriate response. 1. Open a tight or new jar. Moderate difficulty 2. Do heavy model maker plaster (e.g., wash Severe difficulty tejada, floors). 3. Carry a shopping bag or briefcase. Moderate difficulty 4. Wash your back. Unable 5. Use a knife to cut food. No difficulty 6. Recreational activities in which you Unable take some force or impact through your arm, shoulder, or hand (e.g., golf, hammering, tennis, etc.). 7. During the past week, to what extent Quite a bit has your arm, shoulder or hand problem interfered with your normal social activities with family, friends, neighbors or groups? 8. During the past week, were you Very limited limited in your work or other regular daily activites as a result of your arm, shoulder or hand problem? 9. Arm, shoulder or hand pain. Moderate 10. Tingling (pins and needles) in your Mild arm, shoulder or hand. 11. During the past week, how much Mild difficulty difficulty have you had sleeping because of the pain in your arm, shoulder or hand? Quick DASH 36 OT Outpatient Assessment Impairments Problems/Impairments Palpation Tenderness,Impaired Range of Motion,Impaired Strength,Impaired Endurance, Impaired Lifting,Impaired Dressing,Impaired Shower/ Bathing,Impaired Household Care,Impaired Recreational Activities,Subjective C/O Pain Prognosis Rehab Potential Good Clinical Impression Consistent with Diagnosis Yes Short Term Goals Number of Weeks 3 Increase Range of Motion Yes: Flex: 120 Abd: 110 ER: 65 IR: 50 Increase Strength Yes: 4/5 throughout L shoulder exercises Increase Endurance Yes: Pt will tolerate L shoulder exercises for ~20 minutes prior to rest. Decrease Subjective C/O Pain Yes: 6/10 at worst Patient to be Ind w/ HEP Yes: AAROM/AROM exercises with wand, pulleys and wall wipes Improve Quick Dash Score Yes: Activities: 30 or below Correction Goals Number of Weeks 6 Increase Range of Motion Yes: Flex: 130 Abd: 120 ER: 75 IR: 65 Increase Strength Yes: 4/5 throughout L shoulder Increase Endurance Yes: Pt will tolerate L shoulder exercises for ~30 minutes prior to rest. Decrease Subjective C/O Pain Yes: 3/10 at worst Patient to be Ind w/ Advanced HEP Yes: Advanced strengthening exericses Improve Quick Dash Score Yes: Activities: 25 or below Outpatient Therapy Plan of Care Treatment Plan May Include Therapeutic Exercise Including Home Yes Exercise Program Manual Therapy Techniques Yes Neuromuscular Re-education Yes Thermal Modalities Yes Electrical Stimulation Yes Ultrasound/Phonophoresis Yes Iontophoresis Yes Orthotics/Bracing/Splinting Yes Massage Yes Eval/Re-Eval Yes Frequency Times per week 2 Duration Number of Weeks 6 Addendums This patient is a candidate for social No or vocational rehab? Patient/Guardian verbally acknowledges Yes understanding of treatment program and consents to further treatment? Patient/Guardian verbally acknowledges Yes understanding of diagnosis, prognosis and goals for treatment? Eval Complexity OT Charge 79097 - Moderate Complexity PHYSICIAN CERTIFICATION: I certify the specified therapy services for Yvon Machado are required, authorized, and reviewed every 30 days.
== END 2024-09-06 23:59 | disposition home or self-care (01) ==
LOC: OT 10:00
PROVIDERS: Visit Provider Family Medicine
DX: S49.90XA Unspecified injury of shoulder and upper arm, unspecified arm, initial encounter (principal); M25.612 Stiffness of left shoulder, not elsewhere classified
CPT/HCPCS: 97166

== ENCOUNTER 2024-10-24 17:22 | Emergency (ER) | payer MEDICAID, SELFPAY ==
--- NOTE | 2024-10-24 17:25 | ECG_ITS ---
APPROVED REPORT Exam: Resting ECG HR:89 bpm ECG Measurements Heart Rate 89 AXES NC 158 P 64 QRSd 94 QRS 20 QT 355 T 61 QTc 402 Conclusion SINUS RHYTHM INDETERMINATE AXIS NORMAL ECG UNCONFIRMED REPORT Normal sinus rhythm with ventricular rate of [address] elevations or depressions Electronically signed by : PRAFUL MG, 10/24/2024 22:47:41
--- NOTE | 2024-10-24 17:25 | HMH.EDCP ---
Discharge Plan Disposition Patient Disposition: Home, Self-Care Condition: Good Prescriptions Prescriptions: New methocarbamol 750 mg tablet 750 mg PO Q6H PRN (Reason: muscle spasm) Qty: 20 0RF prednisone 50 mg tablet 50 mg PO DAILY 5 Days Qty: 5 0RF No Action sertraline [Zoloft] 100 mg tablet 100 mg PO DAILY Patient Comments: TAKE 1 TABLET BY MOUTH ONCE DAILY DIRECTED buspirone 10 mg tablet 10 mg PO DAILY Patient Comments: TAKE 1 TABLET BY MOUTH TWICE DAILY DIRECTED FOR ANXIETY prazosin 2 mg capsule 2 mg PO DAILY Patient Comments: Take 1 capsule by mouth every night as directed quetiapine 150 mg tablet 150 mg PO DAILY Referrals Follow up/Referrals: Bayron Cohen APRN [Primary Care Provider, Family Practice] - See instructions Activity Restrictions/Add. Instructions Additional Instructions/Restrictions: As we discussed I have sent in a muscle relaxer and steroids to your pharmacy. If you have any new persistent or worsening signs or symptoms follow-up with your PCP return to the ER as needed. Clinical Impressions Clinical Impression: Anterior chest wall pain Print Language Print Language: Czech Discharge ED Provider: Polo Dial HPI <BRENDEN Pacheco - Last Filed: 10/24/24 18:32> General Chief Complaint: Chest Pain Stated Complaint: chest pain Time Seen by Provider: 10/24/24 17:25 History of Present Illness HPI narrative: Patient presents for evaluation of chest pain. Patient states that he onset of midsternal chest pain that began last night. It has been persistent all day. There is no aggravating or relieving factors. He denies any fever chills hemoptysis hematochezia melena nausea vomiting diarrhea. Patient was able to mow his yard today that did not seem to make it particularly better or worse. He does not have a known cardiac history or pulmonary history. Related Data Home Medications ?Medication ?Instructions ?Recorded ?Confirmed buspirone 10 mg tablet 10 mg PO DAILY 02/10/24 08/06/24 prazosin 2 mg capsule 2 mg PO DAILY 02/10/24 08/06/24 quetiapine 150 mg tablet 150 mg PO DAILY 02/10/24 08/06/24 sertraline 100 mg tablet (Zoloft) 100 mg PO DAILY 02/10/24 08/06/24 Previous Rx's ?Medication ?Instructions ?Recorded methocarbamol 750 mg tablet 750 mg PO Q6H PRN muscle spasm #20 10/24/24 tabs prednisone 50 mg tablet 50 mg PO DAILY 5 days #5 tabs 10/24/24 Allergies Allergy/AdvReac Type Severity Reaction Status Date / Time titanium Allergy Hives Verified 08/06/24 08:56 PFS <BRENDEN Pacheco - Last Filed: 10/24/24 18:32> [facility] Disclaimer: The information contained in this section may have been updated after the patient was seen, as this information can be updated by other users. Medical History (Updated 10/24/24 @ 18:29 by BRENDEN Pacheco) Right knee sprain Pain in right knee Internal derangement of right knee Hernia, inguinal, left Bilateral inguinal hernia URI (upper respiratory infection) Depressed Anxiety Surgical History History of hernia surgery History of knee surgery History of back surgery History of colonoscopy Hx laparoscopic cholecystectomy Family History Other Family history of cancer Family history of diabetes mellitus Social History Smoking Status: Current every day smoker alcohol intake: never substance use type: denies use current occupational status: disabled Travel in the last 8 weeks?: None Have you lived/traveled outside US in past 30 days?: No Contact w/someone who lives/traveled outside US past 30 days?: No Exposure to someone with infectious disease in past 14 days?: No Do you have a fever (greater than 100.4 F or 38 C)?: No Have you tested positive for COVID-19?: No Exposed to someone with COVID-19 in past 14 days?: No Do you have a sore throat?: No Do you have a cough?: No Do you have any weakness?: No Do you have any diarrhea?: No Are you experiencing any unusual bleeding?: No Do you have any muscle aches/pain?: No Do you have any abdominal pain?: No Are you experiencing loss of taste or smell?: No Other Medical History Have you received the Pneumonia Vaccine: No <BRENDEN Pacheco - Last Filed: 10/24/24 18:32> ROS Obtained: Yes Systems reviewed as appropriate & no additional complaints except as documented Physical Exam <BRENDEN Pacheco - Last Filed: 10/24/24 18:32> General General appearance: alert and in no apparent distress Respiratory Respiratory exam: Present normal lung sounds bilaterally Cardiovascular Cardiovascular exam: Present regular rate Neurological Exam Neurological exam: Present alert and oriented X3 HEART Score <BRENDEN Pacheco - Last Filed: 10/24/24 18:32> HEART Score HEART Score assessment performed?: Yes History (anamnesis): Slightly suspicious ECG: Normal Age: 45-65 years Risk factors: 1-2 risk factors Troponin: </= normal limit HEART Score: 2 <Polo Dial MD - Last Filed: 10/24/24 21:49> HEART Score HEART Score: 2 Critical Care <BRENDEN Pacheco - Last Filed: 10/24/24 18:32> Critical Care Time Critical Care Time: No Medical Decision Making <BRENDEN Pacheco - Last Filed: 10/24/24 18:32> Medical Records Medical records reviewed: Yes I reviewed the patient's medical records. [place] Inquiry Pt receiving controlled substance: No Vital Signs Vital Signs: 10/24/24 17:26 10/24/24 18:00 10/24/24 18:15 Temperature 98.4 F Temperature Source Oral Pulse Rate 80 73 Pulse Rate [Right Radial] 91 H Respiratory Rate 15 10 L 13 Blood Pressure 135/86 135/86 Blood Pressure [Right Arm] 139/89 Blood Pressure Mean [Right Arm] 105 Blood Pressure Source Blood Pressure Source [Right Arm] Automatic Cuff Blood Pressure Position Blood Pressure Position [Right Arm] Sitting 02 Sat by Pulse Oximetry 97 97 96 Oxygen Delivery Method Room Air Room Air 10/24/24 18:57 Temperature 98 F Temperature Source Oral Pulse Rate 84 Pulse Rate [Right Radial] Respiratory Rate 16 Blood Pressure 119/84 Blood Pressure [Right Arm] Blood Pressure Mean [Right Arm] Blood Pressure Source Automatic Cuff Blood Pressure Source [Right Arm] Blood Pressure Position Sitting Blood Pressure Position [Right Arm] 02 Sat by Pulse Oximetry Oxygen Delivery Method Room Air Lab Data Lab results reviewed: Yes I reviewed the patient's lab results. Labs: Lab Results 10/24/24 17:40: WBC 13.6 H, RBC 4.74, Hgb 14.9, Hct 44.1, MCV 93.0, MCH 31.4 H, MCHC 33.8, RDW 13.3, Plt Count 278, MPV 10.9 H, Neut % (Auto) 62.9, Lymph % (Auto) 25.2, [place] % (Auto) 8.0, Eos % (Auto) 3.0, Baso % (Auto) 0.5, Neut # (Auto) 8.5 H, Lymph # (Auto) 3.4, [place] # (Auto) 1.1 H, Eos # (Auto) 0.4, Baso # (Auto) 0.1, ESR 1, D-Dimer 0.27, Sodium 139, Potassium 3.8, Chloride 103, Carbon Dioxide 26, Anion Gap 13.8, BUN 13, Creatinine 1.00, Estimated Creat Clear 138, Estimated GFR 79, Est GFR ( Amer) 96, Glucose 129 H, Calcium 9.5, Total Bilirubin 0.8, AST 45, ALT 49, Alkaline Phosphatase 86, Troponin I < 0.01, C-Reactive Protein 2.4, NT-Pro-B Natriuret Pep 31.2, Total Protein 7.6, Albumin 4.7, Globulin 2.9, Albumin/Globulin Ratio 1.6, Lipase 78 10/24/24 17:40 10/24/24 17:40 Response Orders (Tests/Meds): ED MEDICATIONS Discontinued Medications Generic Name Dose Route Start Last Admin Trade Name Kaley PRN Reason Stop Dose Admin Acetaminophen 1,000 mg 10/24/24 17:32 10/24/24 17:53 Acetaminophen 500mg Tab PO 10/24/24 17:33 1,000 mg ONCE ONE Administration Belladonna Alkaloids 60 ml 10/24/24 17:32 10/24/24 17:54 Belladonna Alkaloids 60 Ml Ml PO 10/24/24 17:33 60 ml ONCE ONE Administration Dexamethasone Sodium Phosphate 10 mg 10/24/24 18:26 10/24/24 18:46 Dexamethasone 4mg/Ml 5ml Mdv IV 10/24/24 18:27 10 mg ONCE ONE Administration Hydroxyzine Pamoate 25 mg 10/24/24 18:27 10/24/24 18:45 Hydroxyzine Pamoate 25mg Capsule PO 10/24/24 18:28 25 mg ONCE ONE Administration Sodium Chloride 1,000 mls @ 999 mls/hr 10/24/24 17:32 10/24/24 17:53 Sod Chlor 0.9% 1000ml Bag IV 10/24/24 18:32 999 mls/hr .Q1H1M ONE Administration Ketorolac Tromethamine 15 mg 10/24/24 17:32 10/24/24 17:54 Ketorolac 30mg/Ml Vial IV 10/24/24 17:33 15 mg ONCE ONE Administration Methocarbamol 500 mg 10/24/24 18:26 10/24/24 18:45 Methocarbamol 500mg Tablet PO 10/24/24 18:27 500 mg ONCE ONE Administration Ondansetron HCl 4 mg 10/24/24 17:32 10/24/24 17:54 Ondansetron 4mg/2ml Vial IV 10/24/24 17:33 4 mg ONCE ONE Administration ORDERS Category Date Time Status Chest XR 2 view (NOT portable) [XR chest 2V] Stat Exams 10/24/24 17:32 Completed BNP [NT Pro Brain Natriuretic Pep.] Stat Lab 10/24/24 17:40 Completed CBC w/Auto Diff [Complete Blood Count Auto Diff] Stat Lab 10/24/24 17:40 Completed CMP [Comprehensive Metabolic Panel] Stat Lab 10/24/24 17:40 Completed CRP [C-Reactive Protein] Stat Lab 10/24/24 17:40 Completed D-Dimer Stat Lab 10/24/24 17:40 Completed ESR [Erythrocyte Sedimentation Rate] Stat Lab 10/24/24 17:40 Completed Lipase Stat Lab 10/24/24 17:40 Completed Trop I [Troponin I] Stat Lab 10/24/24 17:40 Completed MDM Narrative Medical Decision Narrative: In summary patient is a 48-year-old male who presents to the emergency department for evaluation of chest pain since last night. The chest pain has been continuous and there is no aggravating or relieving factors. Patient has no known cardiac history but does have risk factors. Patient is hemodynamically stable upon arrival, afebrile. Exam is remarkable for well-nourished well-developed 48-year-old gentleman is currently in no acute distress. Breath sounds clear and equal bilaterally to the bases without adventitious sounds increased work of breathing or excessive muscle use. Cardiac S1-S2 regular rate and rhythm without murmurs gallops rubs or thrills. There is to palpation in the anterior chest wall in the area where the patient states his pain originates however there is no ecchymosis edema bony deformity.. There is no epigastric tenderness in the abdomen soft nontender no rebound or guarding no rigidity. Bowel sounds normal active.. Differential diagnosis includes ACS versus PE versus pneumonia versus esophagitis versus gastritis versus pancreatitis versus costochondritis etc. Initial workup will be conducted with hematologic labs twelve-lead EKG plain film chest x-ray. Initial interventions include crystalloid bolus Tylenol Toradol GI cocktail Zofran. Initial workup reviewed by me and his hematologic labs are nonactionable his troponin is undetectable his D-dimer is normal in my informal interpretation of his plain film chest x-ray shows no acute processes prior to radiology read. Please see final read for formal interpretation. Upon repeat evaluation patient reports that he has had no improvement in his chest pain with initial intervention. Given this we have essentially ruled out any serious emergent or life-threatening condition today and while there remains diagnostic uncertainty as to the cause of his symptoms I suspect that this is musculoskeletal in nature. To that end I have recommended the patient a short course of steroids and muscle relaxers and close follow-up with his PCP. Patient verbalized understanding and agreement and is excepting of breath plan. He has strict return precautions. Thus patient is appropriate for discharge with a prescription for Robaxin and steroids and strict return precautions. <Polo Dial MD - Last Filed: 10/24/24 21:49> Vital Signs Vital Signs: 10/24/24 17:26 10/24/24 18:00 10/24/24 18:15 Temperature 98.4 F Temperature Source Oral Pulse Rate 80 73 Pulse Rate [Right Radial] 91 H Respiratory Rate 15 10 L 13 Blood Pressure 135/86 135/86 Blood Pressure [Right Arm] 139/89 Blood Pressure Mean [Right Arm] 105 Blood Pressure Source Blood Pressure Source [Right Arm] Automatic Cuff Blood Pressure Position Blood Pressure Position [Right Arm] Sitting 02 Sat by Pulse Oximetry 97 97 96 Oxygen Delivery Method Room Air Room Air 10/24/24 18:57 Temperature 98 F Temperature Source Oral Pulse Rate 84 Pulse Rate [Right Radial] Respiratory Rate 16 Blood Pressure 119/84 Blood Pressure [Right Arm] Blood Pressure Mean [Right Arm] Blood Pressure Source Automatic Cuff Blood Pressure Source [Right Arm] Blood Pressure Position Sitting Blood Pressure Position [Right Arm] 02 Sat by Pulse Oximetry Oxygen Delivery Method Room Air Lab Data Labs: Lab Results 10/24/24 17:40: WBC 13.6 H, RBC 4.74, Hgb 14.9, Hct 44.1, MCV 93.0, MCH 31.4 H, MCHC 33.8, RDW 13.3, Plt Count 278, MPV 10.9 H, Neut % (Auto) 62.9, Lymph % (Auto) 25.2, [place] % (Auto) 8.0, Eos % (Auto) 3.0, Baso % (Auto) 0.5, Neut # (Auto) 8.5 H, Lymph # (Auto) 3.4, [place] # (Auto) 1.1 H, Eos # (Auto) 0.4, Baso # (Auto) 0.1, ESR 1, D-Dimer 0.27, Sodium 139, Potassium 3.8, Chloride 103, Carbon Dioxide 26, Anion Gap 13.8, BUN 13, Creatinine 1.00, Estimated Creat Clear 138, Estimated GFR 79, Est GFR ( Amer) 96, Glucose 129 H, Calcium 9.5, Total Bilirubin 0.8, AST 45, ALT 49, Alkaline Phosphatase 86, Troponin I < 0.01, C-Reactive Protein 2.4, NT-Pro-B Natriuret Pep 31.2, Total Protein 7.6, Albumin 4.7, Globulin 2.9, Albumin/Globulin Ratio 1.6, Lipase 78 Response Orders (Tests/Meds): ED MEDICATIONS Discontinued Medications Generic Name Dose Route Start Last Admin Trade Name Kaley PRN Reason Stop Dose Admin Acetaminophen 1,000 mg 10/24/24 17:32 10/24/24 17:53 Acetaminophen 500mg Tab PO 10/24/24 17:33 1,000 mg ONCE ONE Administration Belladonna Alkaloids 60 ml 10/24/24 17:32 10/24/24 17:54 Belladonna Alkaloids 60 Ml Ml PO 10/24/24 17:33 60 ml ONCE ONE Administration Dexamethasone Sodium Phosphate 10 mg 10/24/24 18:26 10/24/24 18:46 Dexamethasone 4mg/Ml 5ml Mdv IV 10/24/24 18:27 10 mg ONCE ONE Administration Hydroxyzine Pamoate 25 mg 10/24/24 18:27 10/24/24 18:45 Hydroxyzine Pamoate 25mg Capsule PO 10/24/24 18:28 25 mg ONCE ONE Administration Sodium Chloride 1,000 mls @ 999 mls/hr 10/24/24 17:32 10/24/24 17:53 Sod Chlor 0.9% 1000ml Bag IV 10/24/24 18:32 999 mls/hr .Q1H1M ONE Administration Ketorolac Tromethamine 15 mg 10/24/24 17:32 10/24/24 17:54 Ketorolac 30mg/Ml Vial IV 10/24/24 17:33 15 mg ONCE ONE Administration Methocarbamol 500 mg 10/24/24 18:26 10/24/24 18:45 Methocarbamol 500mg Tablet PO 10/24/24 18:27 500 mg ONCE ONE Administration Ondansetron HCl 4 mg 10/24/24 17:32 10/24/24 17:54 Ondansetron 4mg/2ml Vial IV 10/24/24 17:33 4 mg ONCE ONE Administration ORDERS Category Date Time Status Chest XR 2 view (NOT portable) [XR chest 2V] Stat Exams 10/24/24 17:32 Completed BNP [NT Pro Brain Natriuretic Pep.] Stat Lab 10/24/24 17:40 Completed CBC w/Auto Diff [Complete Blood Count Auto Diff] Stat Lab 10/24/24 17:40 Completed CMP [Comprehensive Metabolic Panel] Stat Lab 10/24/24 17:40 Completed CRP [C-Reactive Protein] Stat Lab 10/24/24 17:40 Completed D-Dimer Stat Lab 10/24/24 17:40 Completed ESR [Erythrocyte Sedimentation Rate] Stat Lab 10/24/24 17:40 Completed Lipase Stat Lab 10/24/24 17:40 Completed Trop I [Troponin I] Stat Lab 10/24/24 17:40 Completed MDM Narrative Medical Decision Narrative: In summary patient is a 48-year-old male who presents to the emergency department for evaluation of chest pain since last night. The chest pain has been continuous and there is no aggravating or relieving factors. Patient has no known cardiac history but does have risk factors. Patient is hemodynamically stable upon arrival, afebrile. Exam is remarkable for well-nourished well-developed 48-year-old gentleman is currently in no acute distress. Breath sounds clear and equal bilaterally to the bases without adventitious sounds increased work of breathing or excessive muscle use. Cardiac S1-S2 regular rate and rhythm without murmurs gallops rubs or thrills. There is to palpation in the anterior chest wall in the area where the patient states his pain originates however there is no ecchymosis edema bony deformity.. There is no epigastric tenderness in the abdomen soft nontender no rebound or guarding no rigidity. Bowel sounds normal active.. Differential diagnosis includes ACS versus PE versus pneumonia versus esophagitis versus gastritis versus pancreatitis versus costochondritis etc. Initial workup will be conducted with hematologic labs twelve-lead EKG plain film chest x-ray. Initial interventions include crystalloid bolus Tylenol Toradol GI cocktail Zofran. Initial workup reviewed by me and his hematologic labs are nonactionable his troponin is undetectable his D-dimer is normal in my informal interpretation of his plain film chest x-ray shows no acute processes prior to radiology read. Please see final read for formal interpretation. Upon repeat evaluation patient reports that he has had no improvement in his chest pain with initial intervention. Given this we have essentially ruled out any serious emergent or life-threatening condition today and while there remains diagnostic uncertainty as to the cause of his symptoms I suspect that this is musculoskeletal in nature. To that end I have recommended the patient a short course of steroids and muscle relaxers and close follow-up with his PCP. Patient verbalized understanding and agreement and is excepting of breath plan. He has strict return precautions. Thus patient is appropriate for discharge with a prescription for Robaxin and steroids and strict return precautions. I was consulted by the [place], and we discussed the complexity of the problems being addressed. I approve the treatment and management plan for this patient's care in the emergency department, thus performing a substantive portion of the medical decision making. Polo Dial MD
[2024-10-24 17:26] VITALS: BP 139/89; PULSE 91; RESP 15; TEMP 36.9; O2SAT 97; BMI 31.6
--- NOTE | 2024-10-24 17:32 | XR_ITS ---
PROCEDURE INFORMATION: Exam: XR Chest Exam date and time: 10/24/2024 5:34 PM Age: 48 years old Clinical indication: Pain; Shortness of breath; Chest pressure; Additional info: Chest pain, SOB, x's 1 wk TECHNIQUE: Imaging protocol: Radiologic exam of the chest. Views: 2 views. COMPARISON: CR XR [facility] LT 06/27/2024 4:01 PM FINDINGS: Lungs: Bilateral apical scarring. Pleural spaces: Unremarkable. No pleural effusion. No pneumothorax. Heart/Mediastinum: Unremarkable. No cardiomegaly. Bones/joints: Unremarkable. IMPRESSION: No acute findings.
--- OUTSIDE RECORDS SUMMARY | 2024-10-24 17:45 | XMS_ITS | Clinical Summary ---
Author Organization [facility] Address [address] [place] [address] Phone Care Team Providers Care Network Announcer Name Role Phone Seamus Vazquez DO Primary Care Provider Allergies No known active allergies Medications gabapentin (NEURONTIN) 300 mg Oral Capsule Take 300 mg by mouth 3 times daily. Active prazosin (MINIPRESS) 1 mg Oral Capsule Take 1 mg by mouth nightly. Take 3 capsules by mouth everyday at bed time Active sertraline (ZOLOFT) 100 mg Oral Tablet Take 100 mg by mouth daily. Active fluticasone propion-salmete roL (ADVAIR DISKUS) 250-50 mcg/dose Inhl Disk with DeviceIndicatio ns:SOB (shortness of breath) Inhale 1 Puff into the lungs 2 times daily. 60 Each 2 12/23/2022 Active ARIPiprazole (ABILIFY) 10 mg Oral Tablet 12/31/2022 Active busPIRone (BUSPAR) 10 mg Oral Tablet 12/31/2022 Active prazosin (MINIPRESS) 5 mg Oral Capsule 12/31/2022 Act kapil predniSONE (DELTASONE) 20 mg Oral TabletIndicatio ns:Acute right-sided low back pain with right-sided sciatica Take 2 tabs daily for 4 days then 1 tab daily for 4 days 12 Tablet 11/14/2023 Active Active Problems Problem Noted Date Diagnosed Date GERD (gastroesophageal reflux disease) Surgical History Surgery Date Site/Laterality Comments KNEE SURGERY 05/19/2007 rt knee BACK SURGERY CHOLECYSTECTOMY Social History Tobacco Use Types Packs/Day Years Used Date Smoking Tobacco: Every Day Cigarettes 2 31.8 Started: 01/21/1993 Smokeless Tobacco: Never Tobacco Cessation:Ready to Q uit: Not Asked; Counseling Given: Not Answered Alcohol Use Standard Drinks/Week Comments No 0 (1 standard drink = 0.6 oz pur e alcohol) PHQ-2 Answer Date Recorded PHQ-2 Total Score 0 11/14/2023 Sex and Gender Information Value Date Recorded Sex Assigned at Not on file Legal Sex Male 3:04 AM EDT Gender Identity Not on file Sexual Orientation Not on file Obstetrics History Last Filed Vital Signs Vital Sign Reading Time Taken Comments Blood Pressure 122/72 11/14/2023 9:24 AM EDT Pulse 51 12/23/2022 9:16 AM EDT Temperature 36.8 C (98.2 F) 11/14/2023 9:24 AM EDT Respiratory Rate 12 2022 1:22 PM EDT Oxygen Saturation 94% 12/23/2022 9:16 AM EDT Inhaled Oxygen Concentration - - Weight 108.9 kg (240 lb) 11/14/2023 9:24 AM EDT Height 185.4 cm (6' 1 ) 11/14/2023 9:24 AM EDT Body Mass Index 31.66 11/14/2023 9:24 AM EDT Plan of Treatment Health Maintenance Due Date Last Done Comments DTaP/TDaP/Td (1 - Tdap) 1993 Hepatitis B Vaccine (1 of 3 - 19+ 3-dose series) 1993 Pneumococcal Vaccine 0-49 (1 of 2 - PCV) 1993 Cologuard 12/15/2019 FIT 12/15/2019 Sigmoidoscopy 12/15/2019 Virtual Colonography 12/15/2019 COVID-19 Vaccine (1 - 2023-2 5 season) 2023 Annual Wellness Exam 11/13/2024 11/14/2023 Influenza Vaccine (#1) 2024 Colon Cancer Screening 11/16/2027 Colonoscopy 11/16/2027 11/17/2022 Meningococcal B Vaccine Aged Out No l onger eligible based on patient's age to complete this topic Goals Goal Patient Goal Type Associated Problems Recent Progress Patient-Stated? Author Maintain a healthy diet, exercise regularly and maintain an ideal body weight General No Eve Downs RMA Stay Tobacco Free Lifestyle No Eve Downs RMA Procedures Procedure Name Priority Date/Time Associated Diagnosis Comments COLONOSCOPY Routine 11/17/2022 8:36 AM EDT Screening for colon cancer from Last 3 Months or Most Recently Relevant to Health Maintenance Results * COLONOSCOPY (11/17/2022 8:36 AM EDT) Anatomical Region Laterality Modality Endoscopy Narrative 11/17/2022 9:02 AM EDT Table formatting from the original result was not included. Findings All observed locations appeared normal. Recommendation Repeat colonoscopy in 5 years Family history of colon cancer Indication Screening for colon cancer Staff Staff Role Agustín Rose MD Performing Provider Moriah Leigh RN Video Production Intern Chato Latham CRNA SOAP WORKER Medications See Anesthesia Record. Preprocedure A history and physical has been performed, and patient medication allergies have been reviewed. The patient's tolerance of previous anesthesia has been reviewed. The risks and benefits of the procedure and the sedation options and risks were discussed with the patient. All questions were answered and informed consent obtained. ASA 2 - Patient with mild systemic disease Details of the Procedure The patient underwent monitored anesthesia care, which was administered by an anesthesia professional. The patient's blood pressure, heart rate, level of consciousness, oxygen, respirations, ECG and ETCO2 were monitored throughout the procedure. A digital rectal exam was performed. The scope was introduced through the anus and advanced to the terminal ileum. Retroflexion was performed in the rectum. Bowel prep was adequate. The patient experienced no blood loss. The procedure was not difficult. The patient tolerated the procedure well. There were no apparent adverse events. Patient provided education and educated on specific discharge instructions. Patient educated on medications given during the procedure and new medications for discharge. Patient verbalizes understanding of discharge education. Patient stable and awaiting transport for discharge. Events Procedure Events Event Event Time ENDO SCOPE IN TIME 11/17/2022 8:24 AM ENDO CECUM REACHED 11/17/2022 8:27 AM ENDO SCOPE OUT TIME 11/17/2022 8:35 AM Specimens No specimens collected us Agustín Rose MD ENDOSCOPY PROCEDURE ORDERABL ES Final Result from Last 3 Months or Most Recently Relevant to Health Maintenance [place] [id number] [place] [id number] [place] [id number] MDR [place] [id number] Care Teams Network Announcer Relationship Specialty Start Date End Date Seamus Vazquez DO [facility] [address] PCP - General Family Medicine 12/14/22
[2024-10-24 17:46] LABS: Hematocrit 44.1 % (42.0-52.0); Hemoglobin 14.9 g/dL (14.1-18.0); Immature Granulocytes % 0.4 %; Mean Corpuscular HGB Conc 33.8 g/dL (31.8-35.4); Mean Corpuscular Hemoglobin 31.4 pg (27.0-31.2); Mean Corpuscular Volume 93.0 fl (80-94); Nucleated Red Blood Cells % 0 %; Platelet Count 278 K/mm3 (142-424); Red Blood Count 4.74 M/mm3 (4.60-6.20); Red Cell Distribution Width-SD 45.5 fL; White Blood Count 13.6 K/mm3 (4.8-10.8)
[2024-10-24] MEDS: 0.9 % SODIUM CHLORIDE 1000ML 1,000 ML 999 ML IV (17:53)
[2024-10-24] MEDS: ACETAMINOPHEN 500MG TAB 1000 MG PO (17:53)
[2024-10-24 17:54] LABS: Albumin Level 4.7 g/dl (3.5-5.0); Chloride 103 mmol/L (98-107); Potassium 3.8 mmoL/L (3.5-5.1); Sodium 139 mmol/L (136-145)
[2024-10-24] MEDS: BELLADONNA ALKALOIDS 60 ML ML PO (17:54)
[2024-10-24] MEDS: ONDANSETRON 4MG/2ML VIAL 4 MG IV (17:54)
[2024-10-24] MEDS: KETOROLAC 30MG/ML VIAL 15 MG IV (17:54)
[2024-10-24 17:57] LABS: Alanine Aminotransferase 49 U/L (12-78); Albumin/Globulin Ratio 1.6 (1.1-1.8); Alkaline Phosphatase 86 U/L (38-126); Anion Gap 13.8 mEq/L (5-15); Aspartate Amino Transferase 45 U/L (17-59); Bilirubin,Total 0.8 mg/dl (0.2-1.3); Blood Urea Nitrogen 13 mg/dl (9-20); Calcium 9.5 mg/dl (8.4-10.2); Carbon Dioxide 26 mmol/L (22.0-30.0); Creatinine Clearance Estimated 138 mL/min (50-200); Creatinine,Serum 1.00 mg/dl (0.66-1.25); Estimated Glomerular Filt Rate 79 ml/min (>60); GFR (African American) 96 ML/MIN (>60); Globulin 2.9 g/dL (1.3-3.2); Glucose 129 mg/dl (74-100); Lipase 78 U/L (23-300); Total Protein,Serum 7.6 g/dl (6.3-8.2)
[2024-10-24 18:00] VITALS: BP 135/86; PULSE 80; RESP 10; O2SAT 97
[2024-10-24 18:06] LABS: NT Pro Brain Natriuretic Pep. 31.2 pg/mL (0-125)
[2024-10-24 18:09] LABS: D-Dimer 0.27 ug/mL (0.0-0.5)
[2024-10-24 18:11] LABS: Troponin I < 0.01 ng/ml (0.00-0.034)
[2024-10-24 18:15] VITALS: BP 135/86; PULSE 73; RESP 13; O2SAT 96
[2024-10-24] MEDS: METHOCARBAMOL 500MG TABLET 500 MG PO (18:45)
[2024-10-24] MEDS: DEXAMETHASONE 4MG/ML 5ML MDV 10 MG IV (18:46)
[2024-10-24 18:57] VITALS: BP 119/84; PULSE 84; RESP 16; TEMP 36.6; O2SAT 98
[2024-10-24 20:10] LABS: C-Reactive Protein 2.4 mg/L (0-4)
== END 2024-10-24 18:58 | disposition home or self-care (01) ==
PROVIDERS: Physician Assistant; Emergency Provider Student in an Organized Health Care Education/Training Program; PCP Nurse Practitioner Family
DX: R07.89 Other chest pain (principal); F17.210 Nicotine dependence, cigarettes, uncomplicated
CPT/HCPCS: 71046; 80053; 83690; 83880; 84484; 85025; 85378; 85651; 86140; 93005; 96361; 96374; 96375; 99285; J1100; J1885; J2405; J7030

== ENCOUNTER 2024-10-30 16:47 | Emergency (ER) | payer MEDICAID, SELFPAY ==
[2024-10-30] VITALS (9 sets, daily range): BP systolic 101–125; BP diastolic 73–85; PULSE 71–99; RESP 15–18; TEMP 36.8–37.2; O2SAT 94–100; BMI 35.3
--- NOTE | 2024-10-30 16:51 | ECG_ITS ---
APPROVED REPORT Exam: Resting ECG HR:94 bpm ECG Measurements Heart Rate 94 AXES ME 155 P 61 QRSd 88 QRS 14 QT 336 T 56 QTc 388 Conclusion SINUS RHYTHM INDETERMINATE AXIS NORMAL ECG UNCONFIRMED REPORT Electronically signed by : Lobito Montanez, 10/30/2024 23:29:15
--- OUTSIDE RECORDS SUMMARY | 2024-10-30 17:13 | XMS_ITS | Clinical Summary ---
Author Organization [facility] Address [address] [place] [address] Phone Care Team Providers Care Regrader Name Role Phone Seamus Vazquez DO Primary Care Provider [phone] Allergies No known active allergies Medications gabapentin [...] Rose MD Performing Provider Moriah Leigh RN Industrial Safety And Health Specialist Chato Latham CRNA MARINE FIRER Medications See Anesthesia Record. Preprocedure A history [...] Relevant to Health Maintenance [place] [id number] [place] [id number] [place] [id number] MDR [place] [id number] Care Teams Regrader Relationship Specialty Start Date End Date Seamus Vazquez [place] [facility] [place] [address] PCP - General Family Medicine 12/14/22
--- NOTE | 2024-10-30 17:15 | XR_ITS ---
PROCEDURE INFORMATION: Exam: XR Chest Exam date and time: 10/30/2024 5:22 PM Age: 48 years old Clinical indication: Other: Chest pain; Additional info: Cp TECHNIQUE: Imaging protocol: Radiologic exam of the chest. Views: 1 view. COMPARISON: CR XR CHEST 2V 10/24/2024 5:34 PM FINDINGS: Lungs: No consolidation. Minimal scarring and/or atelectasis at the left lower lung. Pleural spaces: No pleural effusion. No pneumothorax. Heart/Mediastinum: No cardiomegaly. Bones/joints: Unremarkable. IMPRESSION: No acute findings.
--- NOTE | 2024-10-30 17:21 | HMH.EDCP ---
Discharge Plan Disposition Patient Disposition: Home, Self-Care Prescriptions Prescriptions: No Action sertraline [Zoloft] 100 mg tablet 100 mg PO DAILY Patient Comments: TAKE 1 TABLET BY MOUTH ONCE DAILY DIRECTED buspirone 10 mg tablet 10 mg PO DAILY Patient Comments: TAKE 1 TABLET BY MOUTH TWICE DAILY DIRECTED FOR ANXIETY prazosin 2 mg capsule 2 mg PO DAILY Patient Comments: Take 1 capsule by mouth every night as directed quetiapine 150 mg tablet 150 mg PO DAILY methocarbamol 750 mg tablet 750 mg PO Q6H PRN (Reason: muscle spasm) Qty: 20 0RF Referrals Follow up/Referrals: Ambrose Holcomb MD [Staff Physician, Cardiology] - See instructions Provider,MD Radha [Referring, Medical] - See instructions Activity Restrictions/Add. Instructions Additional Instructions/Restrictions: No evidence of acute cardiopulmonary emergency. Please follow-up with cardiology next available appointment and return to the emergency with any significant worsening of your symptoms. Clinical Impressions Clinical Impression: Chest pain Print Language Print Language: Armenian Discharge ED Provider: Lucy Montanez HPI <BRENDEN Melo - Last Filed: 10/30/24 19:07> General Chief Complaint: Chest Pain Stated Complaint: Chest Pain Time Seen by Provider: 10/30/24 17:08 Mode of Arrival: Ambulatory Source of Information: Patient Description of Symptoms (Recalled from ER Triage Doc. by RN): Patient states he has been having a sharp stabbing left sided chest pain for about 15 minutes prior to arrival in the ER. History of Present Illness HPI narrative: 48-year-old male presents the emergency department with left-sided substernal chest pain that is nonradiating, patient denies any shortness of air, patient states the chest pain occurred approximately 1 hour ago, no alleviating factors, no trauma or injury per history, it is an 8 out of 10 currently, denies any fever or chills, does have cough at baseline, denies any nausea denies any abdominal pain, denies any vomiting constipation diarrhea, no urinary type otology, patient is a current everyday smoker, denies any alcohol or drug use, of note, was recently seen in the emergency department on 10/22/2024 for similar complaint, negative cardiac workup, musculoskeletal chest pain, also complained of some right leg pain at this time, that is improved, initial triage vitals are unremarkable, other past medical history is consistent with PTSD, CHANO/MDD, data deficient history of claudication/angina, patient was seen by PCP several days ago, and is slated for outpatient stress testing. MD complaint: chest pain Severity: severe Severity scale (1-10): 8 Related Data Home Medications ?Medication ?Instructions ?Recorded ?Confirmed buspirone 10 mg tablet 10 mg PO DAILY 02/10/24 10/29/24 prazosin 2 mg capsule 2 mg PO DAILY 02/10/24 10/29/24 quetiapine 150 mg tablet 150 mg PO DAILY 02/10/24 10/29/24 sertraline 100 mg tablet (Zoloft) 100 mg PO DAILY 02/10/24 10/29/24 Previous Rx's ?Medication ?Instructions ?Recorded methocarbamol 750 mg tablet 750 mg PO Q6H PRN muscle spasm #20 10/24/24 tabs Allergies Allergy/AdvReac Type Severity Reaction Status Date / Time titanium Allergy Hives Verified 10/29/24 13:34 [facility] <BRENDEN Melo - Last Filed: 10/30/24 19:07> [facility] Disclaimer: The information contained in this section may have been updated after the patient was seen, as this information can be updated by other users. Medical History Right knee sprain Pain in right knee Internal derangement of right knee Hernia, inguinal, left Bilateral inguinal hernia URI (upper respiratory infection) Depressed Anxiety Surgical History History of hernia surgery History of knee surgery History of back surgery History of colonoscopy Hx laparoscopic cholecystectomy Family History Other Family history of cancer Family history of diabetes mellitus Social History Smoking Status: Current every day smoker alcohol intake: never substance use type: denies use current occupational status: disabled Travel in the last 8 weeks?: None Have you lived/traveled outside US in past 30 days?: No Contact w/someone who lives/traveled outside US past 30 days?: No Exposure to someone with infectious disease in past 14 days?: No Do you have a fever (greater than 100.4 F or 38 C)?: No Have you tested positive for COVID-19?: No Exposed to someone with COVID-19 in past 14 days?: No Do you have a sore throat?: No Do you have a cough?: No Do you have any weakness?: No Do you have any diarrhea?: No Are you experiencing any unusual bleeding?: No Do you have any muscle aches/pain?: No Do you have any abdominal pain?: No Are you experiencing loss of taste or smell?: No Other Medical History Have you received the Pneumonia Vaccine: No <BRENDEN Melo - Last Filed: 10/30/24 19:07> ROS Obtained: Yes All systems reviewed & no additional complaints except as documented Physical Exam <BRENDEN Melo - Last Filed: 10/30/24 19:07> General General appearance: alert and in no apparent distress Head Head exam: atraumatic and normocephalic Eye Eye exam: Present normal appearance, PERRL and EOMI Neck Neck exam: Present full ROM; Absent meningismus Chest Chest inspection: Present normal inspection Respiratory Respiratory exam: Absent respiratory distress, wheezes, stridor, accessory muscle use or prolonged expiratory phase Cardiovascular Cardiovascular exam: Present regular rate, normal rhythm and other (Pulses equal and symmetric in bilateral upper and lower extremities) Abdominal Exam Abdominal exam: Present soft; Absent distention, tenderness, guarding or rebound Extremities Exam Extremities exam: Absent edema Neurological Exam Neurological exam: Present alert Psychiatric Psychiatric exam: Present normal affect Skin Skin exam: Present warm and dry HEART Score <BRENDEN Melo - Last Filed: 10/30/24 19:07> HEART Score HEART Score assessment performed?: No <Lcuy Montanez MD - Last Filed: 10/30/24 20:59> HEART Score History (anamnesis): Moderately suspicious ECG: Non-specific disturbance Age: 45-65 years Risk factors: 3 or more risk factors Troponin: </= normal limit HEART Score: 5 Critical Care <BRENDEN Melo - Last Filed: 10/30/24 19:07> Critical Care Time Critical Care Time: No Medical Decision Making <BRENDEN Melo - Last Filed: 10/30/24 19:07> Medical Records Medical records reviewed: Yes I reviewed the patient's medical records. [place] Inquiry Pt receiving controlled substance: Yes [place] was queried for this patient: No Reason not queried -: Emergent pt cond-no time Risks and benefits of using a controlled substance: were discussed with pt by me Vital Signs Vital Signs: 10/30/24 17:04 10/30/24 17:30 10/30/24 18:00 Temperature 99 F Temperature Source Oral Pulse Rate 86 82 Pulse Rate [Right Brachial] 99 H Respiratory Rate 15 Blood Pressure 116/75 120/81 Blood Pressure [Right Arm] 101/73 L Blood Pressure Mean [Right Arm] 82 Blood Pressure Source [Right Arm] Automatic Cuff Blood Pressure Position [Right Arm] Sitting 02 Sat by Pulse Oximetry 100 96 94 L Oxygen Delivery Method Room Air 10/30/24 18:30 Temperature Temperature Source Pulse Rate 84 Pulse Rate [Right Brachial] Respiratory Rate Blood Pressure 123/83 Blood Pressure [Right Arm] Blood Pressure Mean [Right Arm] Blood Pressure Source [Right Arm] Blood Pressure Position [Right Arm] 02 Sat by Pulse Oximetry 96 Oxygen Delivery Method Lab Data Lab results reviewed: Yes I reviewed the patient's lab results. Labs: Lab Results 10/30/24 17:00: WBC 15.8 H, RBC 4.96, Hgb 15.5, Hct 46.2, MCV 93.1, MCH 31.3 H, MCHC 33.5, RDW 13.4, Plt Count 315, MPV 10.8 H, Neut % (Auto) 58.2, Lymph % (Auto) 26.6, Leake % (Auto) 10.2 H, Eos % (Auto) 2.8, Baso % (Auto) 0.6, Neut # (Auto) 9.2 H, Lymph # (Auto) 4.2, Leake # (Auto) 1.6 H, Eos # (Auto) 0.4, Baso # (Auto) 0.1, Total Counted 100, Neutrophils % (Manual) 50, Lymphocytes % (Manual) 36, Monocytes % (Manual) 10 H, Eosinophils % (Manual) 2, Basophils % (Manual) 1.0, Myelocytes % 1, Platelet Estimate Normal, Polychromasia 1+, Hypochromasia 1+, Poikilocytosis 1+, Anisocytosis 1+, Macrocytosis 1+, Tear Drop Cells 1+, D-Dimer 0.48, Sodium 136, Potassium 4.0, Chloride 101, Carbon Dioxide 24, Anion Gap 15.0, BUN 12, Creatinine 0.80, Estimated Creat Clear 192, Estimated GFR 103, Est GFR ( Amer) 124, Glucose 87, Calcium 8.8, Magnesium 2.1, Total Bilirubin 0.3, AST 36, ALT 47, Alkaline Phosphatase 81, Troponin I < 0.01, NT-Pro-B Natriuret Pep < 20.0, Total Protein 7.6, Albumin 4.6, Globulin 3.0, Albumin/Globulin Ratio 1.5 10/30/24 20:10: Troponin I < 0.01 10/30/24 17:00 10/30/24 17:00 Response Orders (Tests/Meds): ED MEDICATIONS Discontinued Medications Generic Name Dose Route Start Last Admin Trade Name Freq PRN Reason Stop Dose Admin Aspirin 325 mg 10/30/24 17:35 10/30/24 17:44 Aspirin 325mg Tablet PO 10/30/24 17:36 325 mg ONCE ONE Administration Morphine Sulfate 4 mg 10/30/24 17:32 10/30/24 17:37 Morphine 4mg/Ml Syringe IV 10/30/24 17:33 4 mg ONCE ONE Administration Ondansetron HCl 4 mg 10/30/24 17:32 10/30/24 17:37 Ondansetron 4mg/2ml Vial IV 10/30/24 17:33 4 mg ONCE ONE Administration ORDERS Category Date Time Status XR chest portable Stat Exams 10/30/24 17:15 Completed Complete Blood Count Auto Diff Stat Lab 10/30/24 17:00 Completed Comprehensive Metabolic Panel Stat Lab 10/30/24 17:00 Completed D-Dimer Stat Lab 10/30/24 17:00 Completed Magnesium Stat Lab 10/30/24 17:00 Completed NT Pro Brain Natriuretic Pep. Stat Lab 10/30/24 17:00 Completed Troponin I Q3H Lab 10/30/24 20:10 Completed Troponin I Q3H Lab 10/30/24 23:15 Ordered Troponin I Stat Lab 10/30/24 17:00 Completed MDM Narrative Medical Decision Narrative: 48-year-old male presents emergency department with chest pain, differential diagnose include but not limited to, pneumothorax, PE, ACS, cardiac arrhythmia, electrolyte disturbance, costochondritis, gastritis, GERD, anxiety reaction, panic attack, among others. Will obtain basic laboratory studies, EKG, proBNP, troponin, D-dimer, CXR, give 4 mg IV morphine for pain, 4 mg Zofran for nausea, and 324 mg p.o. aspirin. CBC is noted for mild leukocytosis of 15.8, slightly elevated from previous ED visit CMP unremarkable D-dimer 0.48 thus ruling out VTE/PE Initial troponin is less than 0.01 I reviewed the patient's chest x-ray along with corresponding radiologic report, no acute findings. I discussed this patient's case with the attending physician Dr. Montanez at shift change, he will be assuming remainder the patient's care/workup disposition is pending repeat troponin and clinical reassessment. <Lucy Montanez MD - Last Filed: 10/30/24 20:59> Vital Signs Vital Signs: 10/30/24 17:04 10/30/24 17:30 10/30/24 18:00 Temperature 99 F Temperature Source Oral Pulse Rate 86 82 Pulse Rate [Right Brachial] 99 H Respiratory Rate 15 Blood Pressure 116/75 120/81 Blood Pressure [Right Arm] 101/73 L Blood Pressure Mean [Right Arm] 82 Blood Pressure Source [Right Arm] Automatic Cuff Blood Pressure Position [Right Arm] Sitting 02 Sat by Pulse Oximetry 100 96 94 L Oxygen Delivery Method Room Air 10/30/24 18:30 Temperature Temperature Source Pulse Rate 84 Pulse Rate [Right Brachial] Respiratory Rate Blood Pressure 123/83 Blood Pressure [Right Arm] Blood Pressure Mean [Right Arm] Blood Pressure Source [Right Arm] Blood Pressure Position [Right Arm] 02 Sat by Pulse Oximetry 96 Oxygen Delivery Method Lab Data Labs: Lab Results 10/30/24 17:00: WBC 15.8 H, RBC 4.96, Hgb 15.5, Hct 46.2, MCV 93.1, MCH 31.3 H, MCHC 33.5, RDW 13.4, Plt Count 315, MPV 10.8 H, Neut % (Auto) 58.2, Lymph % (Auto) 26.6, Leake % (Auto) 10.2 H, Eos % (Auto) 2.8, Baso % (Auto) 0.6, Neut # (Auto) 9.2 H, Lymph # (Auto) 4.2, Leake # (Auto) 1.6 H, Eos # (Auto) 0.4, Baso # (Auto) 0.1, Total Counted 100, Neutrophils % (Manual) 50, Lymphocytes % (Manual) 36, Monocytes % (Manual) 10 H, Eosinophils % (Manual) 2, Basophils % (Manual) 1.0, Myelocytes % 1, Platelet Estimate Normal, Polychromasia 1+, Hypochromasia 1+, Poikilocytosis 1+, Anisocytosis 1+, Macrocytosis 1+, Tear Drop Cells 1+, D-Dimer 0.48, Sodium 136, Potassium 4.0, Chloride 101, Carbon Dioxide 24, Anion Gap 15.0, BUN 12, Creatinine 0.80, Estimated Creat Clear 192, Estimated GFR 103, Est GFR ( Amer) 124, Glucose 87, Calcium 8.8, Magnesium 2.1, Total Bilirubin 0.3, AST 36, ALT 47, Alkaline Phosphatase 81, Troponin I < 0.01, NT-Pro-B Natriuret Pep < 20.0, Total Protein 7.6, Albumin 4.6, Globulin 3.0, Albumin/Globulin Ratio 1.5 10/30/24 20:10: Troponin I < 0.01 Response Orders (Tests/Meds): ED MEDICATIONS Discontinued Medications Generic Name Dose Route Start Last Admin Trade Name Kaley PRN Reason Stop Dose Admin Aspirin 325 mg 10/30/24 17:35 10/30/24 17:44 Aspirin 325mg Tablet PO 10/30/24 17:36 325 mg ONCE ONE Administration Morphine Sulfate 4 mg 10/30/24 17:32 10/30/24 17:37 Morphine 4mg/Ml Syringe IV 10/30/24 17:33 4 mg ONCE ONE Administration Ondansetron HCl 4 mg 10/30/24 17:32 10/30/24 17:37 Ondansetron 4mg/2ml Vial IV 10/30/24 17:33 4 mg ONCE ONE Administration ORDERS Category Date Time Status XR chest portable Stat Exams 10/30/24 17:15 Completed Complete Blood Count Auto Diff Stat Lab 10/30/24 17:00 Completed Comprehensive Metabolic Panel Stat Lab 10/30/24 17:00 Completed D-Dimer Stat Lab 10/30/24 17:00 Completed Magnesium Stat Lab 10/30/24 17:00 Completed NT Pro Brain Natriuretic Pep. Stat Lab 10/30/24 17:00 Completed Troponin I Q3H Lab 10/30/24 20:10 Completed Troponin I Q3H Lab 10/30/24 23:15 Ordered Troponin I Stat Lab 10/30/24 17:00 Completed MDM Narrative Medical Decision Narrative: 48-year-old male presents emergency department with chest pain, differential diagnose include but not limited to, pneumothorax, PE, ACS, cardiac arrhythmia, electrolyte disturbance, costochondritis, gastritis, GERD, anxiety reaction, panic attack, among others. Will obtain basic laboratory studies, EKG, proBNP, troponin, D-dimer, CXR, give 4 mg IV morphine for pain, 4 mg Zofran for nausea, and 324 mg p.o. aspirin. CBC is noted for mild leukocytosis of 15.8, slightly elevated from previous ED visit CMP unremarkable D-dimer 0.48 thus ruling out VTE/PE Initial troponin is less than 0.01 I reviewed the patient's chest x-ray along with corresponding radiologic report, no acute findings. I discussed this patient's case with the attending physician Dr. Montanez at shift change, he will be assuming remainder the patient's care/workup disposition is pending repeat troponin and clinical reassessment.\ I was consulted by the [place], and we discussed the complexity of the problems being addressed. I approved the treatment and management plan for this patient's care in the emergency department, thus performing a substantive portion of the medical decision making. Lucy Montanez MD, LIZBETH, FACEP Reassessment is Dr. Montanez I took over complete care from Bird pending second troponin which was undetectably low. Patient is stable to follow-up outpatient with cardiology. He was discharged improved stable condition with return precautions emphasized.
[2024-10-30 17:27] LABS: Hematocrit 46.2 % (42.0-52.0); Hemoglobin 15.5 g/dL (14.1-18.0); Immature Granulocytes % 1.6 %; Mean Corpuscular HGB Conc 33.5 g/dL (31.8-35.4); Mean Corpuscular Hemoglobin 31.3 pg (27.0-31.2); Mean Corpuscular Volume 93.1 fl (80-94); Nucleated Red Blood Cells % 0 %; Platelet Count 315 K/mm3 (142-424); Red Blood Count 4.96 M/mm3 (4.60-6.20); Red Cell Distribution Width-SD 45.3 fL; White Blood Count 15.8 K/mm3 (4.8-10.8)
[2024-10-30 17:31] LABS: Albumin Level 4.6 g/dl (3.5-5.0); Chloride 101 mmol/L (98-107); Potassium 4.0 mmoL/L (3.5-5.1); Sodium 136 mmol/L (136-145)
[2024-10-30 17:33] LABS: Blood Urea Nitrogen 12 mg/dl (9-20); Creatinine Clearance Estimated 192 mL/min (50-200); Creatinine,Serum 0.80 mg/dl (0.66-1.25); Estimated Glomerular Filt Rate 103 ml/min (>60); GFR (African American) 124 ML/MIN (>60)
[2024-10-30 17:34] LABS: Alanine Aminotransferase 47 U/L (12-78); Albumin/Globulin Ratio 1.5 (1.1-1.8); Alkaline Phosphatase 81 U/L (38-126); Anion Gap 15.0 mEq/L (5-15); Aspartate Amino Transferase 36 U/L (17-59); Bilirubin,Total 0.3 mg/dl (0.2-1.3); Calcium 8.8 mg/dl (8.4-10.2); Carbon Dioxide 24 mmol/L (22.0-30.0); Globulin 3.0 g/dL (1.3-3.2); Glucose 87 mg/dl (74-100); Total Protein,Serum 7.6 g/dl (6.3-8.2)
[2024-10-30 17:35] LABS: Magnesium 2.1 mg/dl (1.6-2.3)
[2024-10-30] MEDS: MORPHINE 4MG/ML SYRINGE 4 MG IV (17:37)
[2024-10-30] MEDS: ONDANSETRON 4MG/2ML VIAL 4 MG IV (17:37)
[2024-10-30 17:44] LABS: NT Pro Brain Natriuretic Pep. < 20.0 pg/mL (0-125)
[2024-10-30] MEDS: ASPIRIN 325MG TABLET 325 MG PO (17:44)
[2024-10-30 17:56] LABS: D-Dimer 0.48 ug/mL (0.0-0.5)
--- NOTE | 2024-10-30 18:00 | PC.NURSE ---
report received from Patria VANEGAS
[2024-10-30 18:04] LABS: Troponin I < 0.01 ng/ml (0.00-0.034)
[2024-10-30 18:32] LABS: Total Cells Counted 100
[2024-10-30 18:33] LABS: Anisocytosis 1+; Macrocytosis 1+; Poikilocytosis 1+; Tear Drop Cells 1+
[2024-10-30 18:34] LABS: Hypochromasia 1+; Polychromasia 1+
[2024-10-30 20:44] LABS: Troponin I < 0.01 ng/ml (0.00-0.034)
== END 2024-10-30 21:04 | disposition home or self-care (01) ==
PROVIDERS: Physician Assistant; Emergency Provider Student in an Organized Health Care Education/Training Program; PCP Family Medicine
DX: R07.9 Chest pain, unspecified (principal); F17.210 Nicotine dependence, cigarettes, uncomplicated
CPT/HCPCS: 71045; 80053; 83735; 83880; 84484; 85007; 85025; 85027; 85378; 93005; 96374; 96375; 99284; J2270; J2405

== ENCOUNTER 2024-11-15 06:12 | Outpatient (CLI) | payer MEDICAID, SELFPAY ==
--- NOTE | 2024-11-15 | CA_ITS ---
APPROVED REPORT Exam: Pharmacologic Technologist: Marya Wynne Ht: 6 ft 1 in Wt: 245 lbs BSA: 2.35 m2 HR: 62 bpm BP: 119/72 mmHg Medical History Medical History: Smoking Medications: Buspirone, Methocarbamol, Prazosin, Quetiapine, Sertraline Allergies: Titanium Cardiac Risk Factors: Smoking Stress Test Details Test: Lexiscan HR Resting HR: 62 bpm Max Heart Rate (APMHR): 171 bpm Target HR (85% APMHR): 145 bpm Recovery HR: 81 bpm BP Resting BP: 119.0/72.0 mmHg Max BP: 128.0/78.0 mmHg Recovery BP: 117.0/72.0 mmHg ECG Stress ECG Conclusion Pt had chest pain and soa EKG nondiagnostic - Rianna Electronically signed by : Alma Delia Perez MD 11/15/2024 12:27:17
--- OUTSIDE RECORDS SUMMARY | 2024-11-15 06:15 | XMS_ITS | Clinical Summary ---
Author Organization [facility] Address [address] [place] [address] Phone Care Team Providers Care Power Plant Supervisor Name Role Phone Seamus Vazquez DO Primary Care Provider [phone] Allergies No known active allergies Medications gabapentin [...] Rose MD Performing Provider Moriah Leigh RN Installer Chato Latham CRNA SENIOR ANIMAL TRAINER Medications See Anesthesia Record. Preprocedure A history [...] Relevant to Health Maintenance [place] [id number] [place] [id number] [place] [id number] MDR [place] [id number] Care Teams Power Plant Supervisor Relationship Specialty Start Date End Date Seamus Vazquez DO [facility] [place] [address] PCP - General Family Medicine 12/14/22
--- NOTE | 2024-11-15 06:30 | NM_ITS ---
APPROVED REPORT Exam: Nuclear Stress Test Indication: Chest pain, SOB, Tobacco use Patient Location: Outpatient Stress Tech: Marya Wynne NM Tech:Shira Saavedra ARRT, RT (R)(N) Ht: 6 ft 1 in Wt: 240 lbs HR: 66 bpm BP: 119/72 mmHg BSA: 2.33 m2 TID: 1.06 BMI: 31.6 History: Chest pain, SOB, Tobacco use Procedure: Patient received 0.4 mg of intravenous Lexiscan, resting heart rate 66 bpm, resting blood pressure 119/72 mmHg, with Lexiscan maximum heart rate achieved was 106 bpm which is % of the maximum predicted heart rate and blood pressure was 128/78 mmHg. With Lexiscan, patient denied any complaint of chest pain. Cardiac Stress and Resting SPECT Images: Cardiac Stress and Resting SPECT images were obtained using technetium 99m Myoview 30.2 mCi stress and 10.86 mCi at rest. Raw images demonstrate significant soft tissue overlap with the cardiac borders. This may affect diagnostic interpretation of the study findings. Resting and stress imaging in supine positions demonstrate a large-sized, moderate, fixed perfusion defect in the inferior LV wall. This is no longer visualized with prone stress imaging. Findings are suggestive of diaphragmatic attenuation. Gated imaging demonstrates normal global and regional LV systolic function. LVEF is calculated at 56%. Conclusion: Diaphragmatic attenuation is present. No evidence of fixed or reversible perfusion defects. Gated imaging demonstrates normal global and regional LV systolic function. LVEF is calculated at 56%. Electronically signed by : Alma Delia Perez MD 11/15/2024 12:25:04
[2024-11-15] MEDS: SODIUM CHLORIDE 0.9% 10ML SYR (RAD ONLY) 10 ML IV ×2 (08:34)
[2024-11-15] MEDS: ISOTOPE MYOVIEW (PER STUDY) 1 DOSE IV (08:34)
--- NOTE | 2024-11-15 09:00 | US_ITS ---
FINAL REPORT CLINICAL HISTORY: decreased distal pulses, current smoker, bilateral claudication, bilateral rest pain. COMPARISON: None FINDINGS: ANKLE-BRACHIAL PRESSURE INDICES Pressure indices are as follows: RIGHT LOWER EXTREMITY: Ankle-brachial pressure index: 1.29 Comments: Normal LEFT LOWER EXTREMITY: Ankle-brachial pressure index: 1.35 Comments: Normal IMPRESSION: No evidence of significant obstructive peripheral vascular disease of the lower extremities Reviewed, Interpreted and Dictated by Nazia Kyle MD Transcribed by Mary Jane Desir Authenticated and . [facility]
== END 2024-11-15 23:59 | disposition home or self-care (01) ==
LOC: RAD 06:13
PROVIDERS: PCP Family Medicine; Visit Provider Family Medicine
DX: R94.39 Abnormal result of other cardiovascular function study (principal); R94.31 Abnormal electrocardiogram [ECG] [EKG]; I73.9 Peripheral vascular disease, unspecified; F17.200 Nicotine dependence, unspecified, uncomplicated; I20.89 Other forms of angina pectoris; R68.89 Other general symptoms and signs; R09.89 Other specified symptoms and signs involving the circulatory and respiratory systems
CPT/HCPCS: 78452; 93016; 93017; 93018; 93923; A9502; J2785